=== PATIENT | female | born 1950 | race Caucasian/White ===

== ENCOUNTER 2016-10-05 17:33 | Emergency (ER) | payer MEDICARE, BC ==
[2016-10-05 17:44] VITALS: BP 137/84
--- NOTE | 2016-10-05 18:19 | EDM.PDOC ---
ED HPI GENERAL MEDICAL PROBLEM - General Chief Complaint: Neuro Symptoms/Deficits Stated Complaint: HEADACHE,SLURRED SPEECH,TIRED Time Seen by Provider: 10/05/16 18:18 Source of Information: Reports: Patient, Old Records, RN Notes Reviewed History Limitations: Reports: No Limitations - History of Present Illness INITIAL COMMENTS - FREE TEXT/NARRATIVE: Brought in by tube her daughters Chief complaint Altered behavior History of present illness 66-year-old female who lives on her own since her , brought in by her daughters tonight because of concerns of altered behavior. She was helping her daughter move and tripped when her tennis shoe caught on a today falling on her right side. She hit her right ear her head on the right side the right ribs in the right knee. This happened 11 days ago. Follows unwitnessed but one of the daughters found her to help her get up. She is able to walk around. Because of the ongoing pain she went in to see the physician at [facility] 6 days ago. She was told she had bruised ribs and she was sent here for a CT scan of her head which was negative. She was prescribed some hydrocodone/acetaminophen for her chest pain, she has taken only 3 tablets, 2 yesterday and one earlier in the week. Ongoing symptoms include fatigue, headaches, burning in the corners of her eyes right ear feels like it's draining discomfort in the right side of the chest which now goes to the front of the chest pain with deep breath and intermittently feeling off balance. One daughter was concerned that the day she seemed to have slurred speech and her fatigue seems to have increased since yesterday according to the other daughter. No facial droop is noted A friend of the patient's called one of the daughters because she was quite concerned about her slurred speech and her falling asleep so easily when she was visiting. Appetite has been decreased she's been eating less, blood sugars have been running a little higher than usual and she has been continuing to check them regularly. Today her blood sugar was 143 this morning 202 at midday and 129 after eating later. Her chest pain has been improving her right knee doesn't bother her anymore, but she can use to feel tired and feeling a bit off balance. Occasional nausea but no vomiting. Additionally reports increased burping with the following her for over a month. Headache Pain Score (Numeric/FACES): 6 - Related Data Allergies Allergy/AdvReac Type Severity Reaction Status Date / Time No Known Allergies Allergy Verified 10/05/16 17:55 Home Meds: Home Meds Albuterol [Proventil Neb Soln] 3 ml INH Q4H PRN 07/02/13 [History] Albuterol [Ventolin HFA] 2 puff INH Q4H PRN 07/02/13 [History] Amitriptyline [Elavil] 50 mg PO BEDTIME 07/02/13 [History] Aspirin [Adult Low Dose Aspirin EC] 81 mg PO DAILY 07/02/13 [History] Hydrochlorothiazide 25 mg PO DAILY 07/02/13 [History] LORazepam [Ativan] 1 mg PO BEDTIME 07/02/13 [History] Pramipexole Di-HCl [Mirapex] 0.5 mg PO BEDTIME 07/02/13 [History] Venlafaxine [Venlafaxine ER] 150 mg PO DAILY 07/02/13 [History] metFORMIN [metFORMIN XR] 1,000 mg PO BID 07/02/13 [History] Ammonium Lactate [Lac-Hydrin 12% Crm] 1 appful TOP BID 03/07/15 [History] Docusate Sodium 1 cap PO DAILY 03/07/15 [History] Liraglutide [Victoza] 1.8 mg SQ DAILY 03/07/15 [History] Polyethylene Glycol 3350 [MiraLAX] 34 g PO TID 03/07/15 [History] Wheat Dextrin [Benefiber] 1 pack PO DAILY 03/07/15 [History] Past Medical History Respiratory History: Reports: Pneumonia, Recurrent Gastrointestinal History: Reports: Chronic Constipation - Past Surgical History Musculoskeletal Surgical History: Reports: Arthroscopic Knee Social & Family History - Tobacco Use Smoking Status *Q: Never Smoker Years of Tobacco use: 15 Second Hand Smoke Exposure: No - Alcohol Use Days Per Week of Alcohol Use: 0 - Recreational Drug Use Recreational Drug Use: No ED ROS GENERAL - Review of Systems Review Of Systems: See Below Constitutional: Reports: Fatigue, Decreased Appetite. Denies: Fever, Chills HEENT: Reports: Other (Irritation in the inner corners of each eye, altered sensation in the right ear). Denies: Dental Pain, Ear Discharge, Ear Pain, Hearing Loss, Rhinitis, Vision Change Respiratory: Reports: Other (Chest pain right side). Denies: Shortness of Breath, Cough Cardiovascular: Reports: Chest Pain. Denies: Dyspnea on Exertion, Lightheadedness, Palpitations, Syncope Endocrine: Reports: Fatigue GI/Abdominal: Reports: Nausea. Denies: Abdominal Pain, Diarrhea, Vomiting : Reports: No Symptoms Musculoskeletal: Reports: No Symptoms Skin: Reports: No Symptoms Neurological: Reports: Gait Disturbance (Balance problems). Denies: Confusion, Dizziness, Seizure, Syncope, Tingling, Tremors, Trouble Speaking, Weakness Psychiatric: Reports: No Symptoms Hematologic/Lymphatic: Reports: No Symptoms Immunologic: Reports: No Symptoms ED EXAM, NEURO - Physical Exam Exam: See Below Exam Limited By: No Limitations General Appearance: Alert, No Apparent Distress, Other (Vital signs normal except elevated pulse 103) Eye Exam: Bilateral Eye: EOMI, Normal Inspection Ears: Normal External Exam, Normal Canal, Hearing Grossly Normal, Normal TMs Nose: Normal Inspection, Normal Mucosa Throat/Mouth: Normal Inspection, Normal Teeth, Normal Oropharynx, Normal Voice Head Exam: Atraumatic, Normocephalic Neck: Normal Inspection, Supple, Non-Tender Respiratory/Chest: No Respiratory Distress, Lungs Clear, Normal Breath Sounds, Other (Point tenderness at the chest on the right side one rib laterally and near the breastbone is another location,) Cardiovascular: Normal Peripheral Pulses, Regular Rate, Rhythm, Tachycardia ( Mild initially) GI/Abdominal: Normal Bowel Sounds, Soft, Non-Tender Neurological: Alert, Normal Reflexes, No Motor/Sensory Deficits, Other (Romberg shows significant wobbling but she catches herself doesn't fall, tandem gait is a little difficult, normal gaze a bit slow, [id number] testing show some slowness and into her considerable time to understand how to rapidly alternate her hand movements) Back Exam: Normal Inspection Extremities: Normal Inspection, Non-Tender, No Pedal Edema Psychiatric: Normal Affect Skin Exam: Warm, Dry, Intact, Normal Color, No Rash Course - Vital Signs Last Recorded V/S: Last Vital Signs Temp 36.4 C 10/05/16 18:03 Pulse 103 H 10/05/16 18:03 Resp 16 10/05/16 18:03 BP 137/84 10/05/16 18:03 Pulse Ox 98 10/05/16 18:03 - Orders/Labs/Meds Orders: Active Orders 24 hr Category Date Time Status Head wo Cont [CT] Stat Exams 10/05/16 18:50 Taken Labs: Laboratory Tests 10/05/16 10/05/16 Range/Units 18:50 18:50 WBC 8.6 (4.5-11.0) K/uL RBC 4.45 (3.30-5.50) M/uL Hgb 13.2 D (12.0-15.0) g/dL Hct 40.5 (36.0-48.0) % MCV 91 (80-98) fL MCH 30 (27-31) pg MCHC 33 (32-36) % Plt Count 187 (150-400) K/uL Sodium 138 L (140-148) mmol/L Potassium 4.4 (3.6-5.2) mmol/L Chloride 103 (100-108) mmol/L Carbon Dioxide 28 (21-32) mmol/L Anion Gap 11.4 (5.0-14.0) mmol/L BUN 19 H (7-18) mg/dL Creatinine 1.3 H D (0.6-1.0) mg/dL Est Cr Clr Drug Dosing 32.12 mL/min Estimated GFR (MDRD) 41 L (>60) Glucose 119 H (74-106) mg/dL Calcium 9.4 (8.5-10.1) mg/dL - Re-Assessments/Exams Free Text/Narrative Re-Assessment/Exam: 10/06/16 01:05 66-year-old female with fatigue, slowness of movement some impression of slurred speech and increasing symptoms in the last 2 days. However she fell and had head injury 13 days ago. She does have definite point wall tenderness on the right side so her examination is suspicious for rib fracture, her pain is improving. Differential diagnoses includes metabolic problems medication are concussion, new bleeding or swelling in the head. Because of the significance of these symptoms CBC BMP and CT head ordered 10/06/16 01:06 CT head negative 10/06/16 01:07 Glucose 119, electrolytes normal, mild elevation of creatinine at 1.3 and depression of GFR at 41, normal CBC 10/06/16 01:07 Symptoms most consistent with postconcussive syndrome, close follow-up with her primary care is recommended. Findings on exam are consistent with a single rib fracture See discharge instructions 10/06/16 01:08 Departure - Departure Time of Disposition: 19:45 Disposition: Home, Self-Care 01 Condition: Good Clinical Impression: Postconcussive syndrome Fracture of rib on right side with routine healing Qualifiers: Rib fracture type: single rib Fracture type: closed Qualified Code(s): S22.31XD - Fracture of one rib, right side, subsequent encounter for fracture with routine healing - Discharge Information Instructions: Post-Concussion Syndrome, [id number], Rib Fracture, Easy-to- Read Referrals: Linnea Andrade PA [Primary Care Provider] - Forms: ED Department Discharge Additional Instructions: Please make an appointment with your doctor within 7 days This is to recheck your head injury and also talk about your stomach problems and burping. Return to emergency if you have severe headache that she cannot manage, vomiting , fever, repeated falls, or other worsening change in behavior - My Orders Last 24 Hours: My Active Orders 10/05/16 18:50 Head wo Cont [CT] Stat - Assessment/Plan Last 24 Hours: My Active Orders 10/05/16 18:50 Head wo Cont [CT] Stat
== END 2016-10-05 20:03 | disposition home or self-care (01) ==
LOC: JP.ED 17:33
DX: F07.81 Postconcussional syndrome (principal); S22.31XD Fracture of one rib, right side, subsequent encounter for fracture with routine healing; Z79.82 Long term (current) use of aspirin; Z79.84 Long term (current) use of oral hypoglycemic drugs; Z79.899 Other long term (current) drug therapy; W19.XXXD Unspecified fall, subsequent encounter
CPT/HCPCS: 36415; 70450; 80048; 85027; 99284; 99284-25

== ENCOUNTER 2017-04-18 17:53 | Emergency (ER) | payer MEDICARE, BC ==
[2017-04-18 19:27] VITALS: BP 143/86
--- NOTE | 2017-04-18 20:49 | EDM.PDOC ---
ED HPI GENERAL MEDICAL PROBLEM - General Chief Complaint: Respiratory Problem Stated Complaint: SOB,SICK SINCE Time Seen by Provider: 04/18/17 19:33 Source of Information: Reports: Patient, Family (With her daughter and then with a second daughter as well who arrived later), Old Records, RN Notes Reviewed History Limitations: Reports: No Limitations - History of Present Illness INITIAL COMMENTS - FREE TEXT/NARRATIVE: Brought in by her daughter Chief complaint Difficulty breathing/short of breath History of present illness 66-year-old female who hasn't felt back to normal since . She and other family members started developing fever cough vomiting right after [place], at least one family member was diagnosed with influenza. It was felt that she probably had as well, did not seek medical treatment. However she wasn't fully improved so she was seen at clinic in mid February, symptoms at that time included cough aches and fever. It was thought that she probably had influenza but the examining provider felt there was also some crepitations in the lungs and she was prescribed azithromycin for possible pneumonia. No x-rays were done at that time. Fever did improve but she continued to have cough and was seen at the [facility] clinic a little over 2 weeks ago because of persisting cough and congestion. Chest x-ray was done she was diagnosed with pneumonia and she was prescribed amoxicillin clavulanic acid as well as albuterol ipratropium inhaler. She was told she had pneumonia of the left side of the lungs. Symptoms at that time included cough shortness of breath and greenish sputum. She finished her antibiotics 4 days ago feeling a little better but she continues to feel some shortness of breath when she is up and around and some left-sided chest pain is worse with movement breathing turning. No longer had any fever. She has occasional sharp pain on the left side of the chest ache with up to the armpit. She's also had some bad taste in her mouth on occasion No coryza No fever, occasional sweating spells. Cough is milder but persistent and she feels a bit short of breath. Mild headache No ear or throat pain Occasional hoarseness in her voice. She feels more short of breath on stairs and at times at night she'll wake up feeling short of breath as well. Has not had any swelling in her extremities. Last couple of days she's had decreased appetite although she been drinking small amounts. She didn't have visit at the clinic 4 days ago for follow-up of pulmonary nodules found on a previous CT scan. She hasn't gotten the results of this currently. Normally blood pressure is well controlled, she She's on treatment for diabetes, hypertension, anxiety and depression. 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 She has been diagnosed with asthma but only occasionally use the inhaler in the past. Left Chest Pain Score (Numeric/FACES): 6 - Related Data Allergies Allergy/AdvReac Type Severity Reaction Status Date / Time No Known Allergies Allergy Verified 04/18/17 18:26 Home Meds: Home Meds Albuterol [Proventil Neb Soln] 3 ml INH Q4H PRN 07/02/13 [History] Albuterol [Ventolin HFA] 2 puff INH Q4H PRN 07/02/13 [History] Amitriptyline [Elavil] 50 mg PO BEDTIME 07/02/13 [History] Aspirin [Adult Low Dose Aspirin EC] 81 mg PO DAILY 07/02/13 [History] Hydrochlorothiazide 25 mg PO DAILY 07/02/13 [History] LORazepam [Ativan] 1 mg PO BEDTIME 07/02/13 [History] Pramipexole Di-HCl [Mirapex] 0.5 mg PO BEDTIME 07/02/13 [History] Venlafaxine [Venlafaxine ER] 150 mg PO DAILY 07/02/13 [History] metFORMIN [metFORMIN XR] 1,000 mg PO BID 07/02/13 [History] Ammonium Lactate [Lac-Hydrin 12% Crm] 1 appful TOP BID 03/07/15 [History] Docusate Sodium 1 cap PO DAILY 03/07/15 [History] Liraglutide [Victoza] 1.8 mg SQ DAILY 03/07/15 [History] Polyethylene Glycol 3350 [MiraLAX] 34 g PO TID 03/07/15 [History] Wheat Dextrin [Benefiber] 1 pack PO DAILY 03/07/15 [History] Past Medical History Respiratory History: Reports: Pneumonia, Recurrent Gastrointestinal History: Reports: Chronic Constipation - Past Surgical History Musculoskeletal Surgical History: Reports: Arthroscopic Knee Social & Family History - Tobacco Use Smoking Status *Q: Unknown Ever Smoked Years of Tobacco use: 15 Second Hand Smoke Exposure: No - Alcohol Use Days Per Week of Alcohol Use: 0 - Recreational Drug Use Recreational Drug Use: No ED ROS GENERAL - Review of Systems Review Of Systems: Unable To Obtain Constitutional: Reports: Fatigue, Diaphoresis (Occasional). Denies: Fever, Chills HEENT: Reports: Other (Occasional hoarseness). Denies: Ear Pain, Eye Discharge , Rhinitis, Throat Pain, Vision Change Respiratory: Reports: Shortness of Breath, Cough, Sputum (Mild improved). Denies: Pleuritic Chest Pain Cardiovascular: Reports: Chest Pain (That side of chest but aggravated by movement and breathing), Dyspnea on Exertion (On the stairs). Denies: Edema, Palpitations, Syncope Endocrine: Reports: Fatigue GI/Abdominal: Reports: Constipation (Chronic), Decreased Appetite. Denies: Diarrhea, Nausea, Vomiting : Denies: Dysuria Musculoskeletal: Reports: No Symptoms Skin: Reports: No Symptoms Neurological: Reports: No Symptoms Psychiatric: Reports: No Symptoms Hematologic/Lymphatic: Reports: No Symptoms ED EXAM, GENERAL - Physical Exam Exam: See Below Exam Limited By: No Limitations General Appearance: Alert, Mild Distress, Other (She looks nontoxic, no difficulty speaking or breathing, saturation is normal at rest, blood pressure is elevated bit but other vital signs normal) Eye Exam: Bilateral Eye: EOMI, Normal Inspection Ears: Normal External Exam, Normal Canal, Hearing Grossly Normal, Normal TMs Nose: Normal Inspection, Normal Mucosa Throat/Mouth: Normal Inspection, Normal Oropharynx Head: Atraumatic Neck: Normal Inspection, Supple. No: Lymphadenopathy (R), Lymphadenopathy (L) Respiratory/Chest: No Respiratory Distress, Lungs Clear, Normal Breath Sounds, No Accessory Muscle Use, Other (Chest wall tenderness on the left side). No: Chest Non-Tender Cardiovascular: Normal Peripheral Pulses, Regular Rate, Rhythm GI/Abdominal: Soft, Non-Tender Extremities: Normal Inspection, No Pedal Edema Neurological: Alert, No Motor/Sensory Deficits Skin Exam: Warm, Dry, Intact, Normal Color, No Rash Lymphatic: No Adenopathy Course - Vital Signs Last Recorded V/S: Last Vital Signs Temp 36.7 C 04/18/17 18:22 Pulse 92 04/18/17 20:17 Resp 21 H 04/18/17 19:26 BP 143/86 H 04/18/17 19:26 Pulse Ox 99 02/19/18 20:17 - Re-Assessments/Exams Free Text/Narrative Re-Assessment/Exam: 04/18/17 20:42 66-year-old female with recent diagnosis of influenza about a month ago and pneumonia 2 weeks ago, was on a course of azithromycin followed by amoxicillin/ clavulanic acid Get short of breath at night, sleeps in a recliner intermittently over the last year but no peripheral edema CT scan done for follow-up of pulmonary nodules is negative for acute disease done 3 days ago. Consequently she had pneumonia it has resolved. She does have left-sided chest wall pain ongoing fatigue and some episodes of shortness of breath at night. Saturation normal on room air at rest and with ambulation in emergency Follow-up with primary care She has an appointment with cardiology in April. She continues to feel short of breath further pulmonary studies may be indicated May need stress testing as well Departure - Departure Time of Disposition: 20:44 Disposition: Home, Self-Care 01 Condition: Good Clinical Impression: Post-infection fatigue, Mild intermittent asthma in adult without complication , Left-sided chest wall pain, Nocturnal dyspnea - Discharge Information Instructions: Shortness of Breath, Adult, [id number], Chest Wall Pain Referrals: Linnea Andrade PA [Primary Care Provider] - Forms: ED Department Discharge Additional Instructions: Although there is no evidence of pneumonia or other lung disease currently, you are expecting some shortness of breath at night. Possible causes include asthma, reflux and less likely due to heart disease. Make a follow-up appointment with your provider in the next 1-2 weeks to recheck your lungs. When you see the charge manager talk to them about the difficulty breathing especially occurring at nighttime. Return to emergency if you have a high fever, are very short of breath, turning blue, or develop severe chest pain
== END 2017-04-18 21:08 | disposition home or self-care (01) ==
LOC: JP.ED 17:53
DX: J45.20 Mild intermittent asthma, uncomplicated (principal); R53.83 Other fatigue; E11.9 Type 2 diabetes mellitus without complications; I10 Essential (primary) hypertension; Z79.899 Other long term (current) drug therapy; Z79.82 Long term (current) use of aspirin
CPT/HCPCS: 99283; 99285

== ENCOUNTER 2018-06-19 06:53 | Day surgery (SDC) | payer MEDICARE, BC ==
[2018-06-19] MEDS ORDERED: fentaNYL 100 MCG/2 ML SDV ONE (07:11)
[2018-06-19] MEDS ORDERED: Propofol 200 MG/20 ML SDV ONE (07:11)
[2018-06-19] MEDS ORDERED: Midazolam 1 MG/ML 2 ML SDV ONE (07:12)
[2018-06-19] MEDS ORDERED: Dextrose 5%-Lactated Ringers 1,000 ML IV SCH (07:15)
[2018-06-19] MEDS ORDERED: Pantoprazole 40 MG Vial IVPUSH ONE (08:33)
[2018-06-19 09:43] VITALS: BP 149/85
--- NOTE | 2018-06-27 08:32 | OR ---
DATE OF PROCEDURE: 06/19/2018 SURGEON: Davonte Amaro MD PREOPERATIVE DIAGNOSIS: Epigastric discomfort associated with foul-smelling burping and hiccups. POSTOPERATIVE DIAGNOSES: 1. Probable diabetic gastroparesis. 2. Mild antral gastritis. PROCEDURE PERFORMED: Esophagogastroduodenoscopy with antral biopsies for CLOtest. ANESTHESIA: IV sedation. INDICATION FOR PROCEDURE: This is a 68-year-old presenting with some epigastric discomfort, nausea, and a history of intermittent hiccups. She also has quite a bit in the way of foul- smelling burps and a sense of bloating in the postprandial period. She has longstanding type 2 diabetes mellitus. Plan is to proceed with upper GI endoscopy with biopsies as indicated. Potential risks including bleeding and perforation were discussed, and the patient wishes to proceed. DESCRIPTION OF PROCEDURE: The patient was taken to the operating room and placed in a left lateral decubitus position. IV sedation was administered, after which the upper GI endoscope was passed orally through the length of the esophagus and into the stomach, with retroflexion view of the fundus, and thereafter, through the pyloric channel and into the proximal duodenum. Findings included normal hypopharynx, larynx, upper esophageal sphincter, and esophageal body. The EG junction was likewise unremarkable. As one entered the stomach, there was some retained old food present. This was relatively scant at this point, but certainly would be abnormal, with the patient having been n.p.o. for an excess of 8 hours. There was some mild redness in the antrum associated with this. Otherwise, there was wide open pyloric channel, and the visualized portions of the duodenum were unremarkable. At this point, biopsies were obtained from the antrum and sent for CLOtest for H. pylori. Minimal bleeding from the biopsy site was seen, and the procedure was then concluded. It would appear the patient probably has an element of diabetic gastroparesis, along with the antral gastritis. The plan will be to start the patient on Protonix 40 mg a day and then Reglan 5 mg one-half hour a.c. and at bedtime. The patient is fairly small, so will start with a relatively low dose of the Reglan. She also was instructed to hold the Zantac, after she had been on Protonix for 3 days. Additionally, she should be instructed on anti- bezoar diet and follow closely with Linnea Andrade PA-C, in [facility] in 2 to 3 weeks. If the above regimen is unsuccessful in controlling the patient's symptoms, re-referral to Dr. Amaro in the Surgery Department would be warranted to discuss additional treatment options. Davonte Amaro MD /[id number]
== END 2018-06-19 10:12 | disposition home or self-care (01) ==
LOC: JP.SDS 06:53
PROVIDERS: ATTEND Surgery
DX: K29.70 Gastritis, unspecified, without bleeding (principal); E11.9 Type 2 diabetes mellitus without complications; E78.00 Pure hypercholesterolemia, unspecified; J44.9 Chronic obstructive pulmonary disease, unspecified
CPT/HCPCS: 87081; C9113; J2250; J2704; J3010; J7042

== ENCOUNTER 2019-11-30 08:40 | Day surgery (SDC) | payer MEDICARE, BC ==
[2019-11-30] MEDS ORDERED: Midazolam 1 MG/ML 2 ML SDV ONE (08:57)
[2019-11-30] MEDS ORDERED: fentaNYL 100 MCG/2 ML SDV ONE (08:57)
[2019-11-30] MEDS ORDERED: Propofol 200 MG/20 ML SDV ONE (08:57)
[2019-11-30] MEDS ORDERED: Sodium Chloride 0.9% 1,000 ML IV SCH (09:30)
[2019-11-30] MEDS ORDERED: Dextrose 5%-Lactated Ringers 1,000 ML IV SCH (12:00)
[2019-11-30] MEDS ORDERED: diphenhydrAMINE 50 MG/ML SDV IVPUSH ONE (12:45)
--- NOTE | 2019-11-30 12:47 | OR ---
DATE OF PROCEDURE: 11/30/2019 SURGEON: Martinez Piña MD PROCEDURE: 1. EGD. 2. Colonoscopy. FINDINGS: 1. Transverse colon polyp, approximately 5 mm, completely removed using cold biopsy forceps. 2. Normal EGD. COMPLICATIONS: None. DIRECTOR OF PEOPLE: None. ANESTHESIA: MAC. PREOPERATIVE DIAGNOSIS: Hepatic masses. POSTOPERATIVE DIAGNOSIS: Hepatic masses. RISKS: Risks, benefits, alternatives, and limitations including, but not limited to, infection, bleeding, and perforation were explained to the patient who wished to proceed. PROCEDURE IN DETAIL: The patient was placed in left lateral decubitus position. The EGD scope was introduced and advanced atraumatically to the second part of the duodenum. No evidence of duodenitis or ulceration. In the stomach itself, no gastritis, no ulcers, no masses. The GE junction was also normal. Normal retroflexion. No abnormalities in the esophagus. Digital rectal exam was performed. Scope was introduced and advanced atraumatically to the ileocecal valve. A photo was taken. Scope was brought back through the ascending, transverse, descending colon and retroflexed. Within the transverse colon, there was approximately 5 mm polyp identified and completely removed. No abnormalities on retroflexion. No colitis. No other pathology. Prep was marginal with approximately 95% luminal surface could be seen with suction and irrigation techniques. No abnormalities on retroflexion. Greater than 15 minutes was spent removing the scope. Martinez Piña MD /[id number]
[2019-11-30] MEDS ORDERED: Iopamidol 612 MG/ML 500 ML Multipack Bottle PO ONE (12:59)
[2019-11-30] MEDS ORDERED: Sodium Chloride 0.9% 10 ML Syringe FLUSH ONE (12:59)
[2019-11-30] MEDS ORDERED: Iopamidol 612 MG/ML 500 ML Multipack Bottle IV ONE (12:59)
[2019-11-30] MEDS: Morphine 2 MG/ML SYRINGE IVPUSH PRN ×2 (13:20→15:03)
[2019-11-30 14:20] VITALS: PULSE 88
[2019-11-30 14:21] VITALS: BP 143/71
--- NOTE | 2019-11-30 14:35 | CT ---
Chest Abdomen Pelvis w Cont CLINICAL HISTORY: Liver lesions TECHNIQUE: Transverse scans were obtained from the thoracic inlet to the lung bases with IV contrast. Auto dose reduction and degenerative reconstruction techniques were employed COMPARISONS: None FINDINGS: Lung window images show scattered granulomata. No mass or infiltrate is seen.. Soft tissue window images show no mediastinal mass or suspicious lymphadenopathy. There are no pleural effusions. CT ABDOMEN AND PEVIS WITH IV CONTRAST COMPARISON: None TECHNIQUE: Axial tomographic images are obtained from the dome of the diaphragm to the iliac crest with IV contrast enhancement. Oral contrast was used. FINDINGS: The livercontains numerous low-attenuation lesions throughout the liver. There is a anatomic variant with elongated prominent lower portion of the right lobe. There is some heterogeneity in the dome. The gallbladder is mildly dilated. The spleen has a normal size and shape. The pancreas shows some mild heterogeneity around the head of the pancreas without definite focal mass. There is mild prominence of the pancreatic duct. No inflammatory changes are seen in the surrounding fat. The adrenal glands appear normal bilaterally. The kidneys show no mass, stones or hydronephrosis. The small intestinal gas pattern is nonspecific. Colon is air-filled. It is redundant. There is some soft tissue fullness in the right colon which is likely due to redundancy. Patient has had a recent colonoscopy. IMPRESSION: Numerous low-attenuation lesions scattered throughout the liver. Largest measures 2 cm. This is most likely metastatic disease. There are some heterogeneous and partially enhancing lesions near the dome of the liver. No definite mass is identified. There is some heterogeneity and slight fullness in the head of the pancreas without definite focal mass
== END 2019-11-30 15:27 | disposition home or self-care (01) ==
LOC: JP.SDS 08:40
PROVIDERS: ATTEND Surgery
DX: D12.3 Benign neoplasm of transverse colon (principal); R16.0 Hepatomegaly, not elsewhere classified; J44.9 Chronic obstructive pulmonary disease, unspecified; E11.22 Type 2 diabetes mellitus with diabetic chronic kidney disease; N18.9 Chronic kidney disease, unspecified
CPT/HCPCS: 43235; 45380; 71260; 74177; J1200; J2250; J2270; J2704; J3010; J7030; J7121; 88305

== ENCOUNTER 2019-12-07 14:52 | Emergency (ER) | payer MEDICARE, BC ==
[2019-12-07] MEDS ORDERED: Sodium Chloride 0.9% 10 ML Syringe FLUSH PRN (15:25)
--- NOTE | 2019-12-07 15:31 | EDM.PDOC ---
ED HPI GENERAL MEDICAL PROBLEM - General Chief Complaint: General Stated Complaint: SHAKING , COLD, HAS MASSES IN LIVER Time Seen by Provider: 12/07/19 15:15 Source of Information: Reports: Patient, Family, Old Records, RN History Limitations: Reports: No Limitations - History of Present Illness INITIAL COMMENTS - FREE TEXT/NARRATIVE: 69 yo female here with increasing SOB and weakness. Was recently dx with CA involving the liver. It is unknown if the primary is from her liver or if these are mets to the liver. Is scheduled next Tuesday for a biopsy in [place]. No recent fever. Eating and drinking OK. Some chest pains recently, has no cardiac hx. Was recently checked for leg DVT's. Here with daughter. Pain has been increasing rapidly lately such that Dilaudid 2 mg q 4 h is not controlling her pain. Dr. Piña performed colonoscopy on her finding only a single polyp that was removed in the past few days. Onset: Gradual Duration: Week(s):, Getting Worse Location: Reports: Abdomen (RUQ is where most of her pain is located.) Quality: Reports: Ache Severity: Severe Improves with: Reports: Medication Worsens with: Reports: Other (time/meds wearing off) Context: Reports: Other (See HPI) Associated Symptoms: Reports: Chest Pain (intermittent), Diaphoresis, Malaise, Shortness of Breath, Weakness (generalized). 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: Other (see below) (Dilaudid just before leaving home, 2 mg po) Right Upper Abdomen Pain Score (Numeric/FACES): 8 - Related Data Allergies Allergy/AdvReac Type Severity Reaction Status Date / Time metoclopramide [From Reglan] AdvReac Nausea Verified 12/07/19 15:30 contrast dye Allergy Itching Uncoded 12/07/19 15:30 Home Meds: Home Meds Albuterol [Ventolin HFA] 2 puff INH Q4H PRN 07/02/13 [History] Aspirin [Adult Low Dose Aspirin EC] 81 mg PO DAILY 07/02/13 [History] Pramipexole Di-HCl [Mirapex] 0.5 mg PO BEDTIME 07/02/13 [History] metFORMIN [metFORMIN XR] 1,000 mg PO BID 07/02/13 [History] Docusate Sodium 500 mg PO DAILY PRN 03/07/15 [History] Polyethylene Glycol 3350 [MiraLAX] 34 g PO TID 03/07/15 [History] Calcium Carbonate [Calcium] 600 mg PO BID 05/25/18 [History] Insulin Glargine,Hum.Rec.Anlog [Basaglar Kwikpen U-100] 15 unit SQ BEDTIME 05/25/18 [History] Mirtazapine [Remeron] 30 mg PO BEDTIME 05/25/18 [History] Cholecalciferol (Vitamin D3) [Vitamin D3] 2,000 unit PO DAILY 11/29/19 [History] Lactulose [Generlac] 10 gm PO DAILY PRN 11/29/19 [History] Sennosides [Ex-Lax Maximum Strength] 25 mg PO DAILY PRN 11/29/19 [History] Vitamin B Complex/Folic Acid [Vitamin B-100 Complex] 1 tab PO DAILY 11/29/19 [History] HYDROmorphone [Dilaudid] 2 - 4 mg PO Q4H PRN 12/07/19 [History] LORazepam [Ativan] 0.5 mg PO Q6H PRN 12/07/19 [History] Magnesium Oxide [Magnesium] 1,500 mg PO BEDTIME 12/07/19 [History] Past Medical History HEENT History: Reports: Cataract Cardiovascular History: Reports: High Cholesterol, Hypertension Respiratory History: Reports: Asthma, COPD, Pneumonia, Recurrent Gastrointestinal History: Reports: Chronic Constipation, Gastritis, Hemorrhoids, Other (See Below) Other Gastrointestinal History: nausea and vomiting. 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: Musculoskeletal History: Reports: Arthritis Neurological History: Reports: Neuropathy, Diabetic Psychiatric History: Reports: Anxiety Endocrine/Metabolic History: Reports: Diabetes, Type II Hematologic History: Reports: None - Past Surgical History HEENT Surgical History: Reports: Tonsillectomy Cardiovascular Surgical History: Reports: None Respiratory Surgical History: Reports: None GI Surgical History: Reports: Colonoscopy, EGD Female Surgical History: Reports: None Endocrine Surgical History: Reports: None Neurological Surgical History: Reports: None Musculoskeletal Surgical History: Reports: Arthroscopic Knee Social & Family History - Family History Family Medical History: Noncontributory - Caffeine Use Caffeine Use: Reports: Coffee, Soda, Tea ED ROS GENERAL - Review of Systems Review Of Systems: See Below Constitutional: Reports: Malaise, Weakness, Diaphoresis (at times). Denies: Fever, Decreased Appetite HEENT: Reports: No Symptoms Respiratory: Reports: Shortness of Breath. Denies: Wheezing, Pleuritic Chest Pain, Cough, Sputum, Hemoptysis Cardiovascular: Reports: Chest Pain (intermittent L sided), Dyspnea on Exertion. Denies: Edema, Lightheadedness, Palpitations Endocrine: Reports: No Symptoms GI/Abdominal: Reports: Abdominal Pain (RUQ) : Reports: No Symptoms Musculoskeletal: Reports: No Symptoms Skin: Reports: No Symptoms Neurological: Reports: Weakness (generalized) Psychiatric: Reports: No Symptoms ED EXAM, GENERAL - Physical Exam Exam: See Below Exam Limited By: No Limitations General Appearance: Alert, WD/WN, No Apparent Distress, Lethargic (? from her opiates) Eye Exam: Bilateral Eye: Normal Inspection Ears: Normal External Exam, Normal Canal, Hearing Grossly Normal Ear Exam: Bilateral Ear: Auricle Normal, Canal Normal Nose: Normal Inspection, No Blood Throat/Mouth: Normal Inspection, Normal Lips, Normal Oropharynx, Normal Voice, No Airway Compromise Head: Atraumatic, Normocephalic Neck: Normal Inspection Respiratory/Chest: No Respiratory Distress, No Accessory Muscle Use, Rhonchi (bilaterally), Other (mild tachypnea). No: Respiratory Distress, Crackles, Wheezing, Accessory Muscle Use, Prolonged Expiration Cardiovascular: No Edema, Tachycardia GI/Abdominal: No Distention, Tender (RUQ). No: Non-Tender, Distended, Abnormal Bowel Sounds Back Exam: Normal Inspection Extremities: Normal Inspection, Normal Range of Motion, Non-Tender, No Pedal Edema Neurological: Alert, Oriented, CN II-XII Intact, No Motor/Sensory Deficits, Other (mentally sluggish, ? from her opiates) Psychiatric: Flat Affect. No: Tearful Skin Exam: Warm, Dry, Intact, Normal Color, No Rash Course - Vital Signs Text/Narrative:: Dr. Jeremi john @ 1850h Last Recorded V/S: Last Vital Signs Temp 36.9 C 12/07/19 15:18 Pulse 86 12/07/19 16:30 Resp 21 H 12/07/19 15:18 BP 144/63 H 12/07/19 16:30 Pulse Ox 96 12/07/19 15:18 - Orders/Labs/Meds Orders: Active Orders 24 hr Category Date Time Status Cardiac Monitoring [RC] .As Directed Care 12/07/19 15:04 Active UA W/MICROSCOPIC [URIN] Stat Lab 12/07/19 15:09 Ordered Iopamidol [Isovue-370 (76%)] Med 12/07/19 16:45 Active 70 ml IV . DIRECTED Sodium Chloride 0.9% [Normal Saline] 1,000 ml Med 12/07/19 16:30 Active IV ASDIRECTED Sodium Chloride 0.9% [Normal Saline] 100 ml Med 12/07/19 16:45 Active IV ASDIRECTED Sodium Chloride 0.9% [Saline Flush] Med 12/07/19 15:25 Active 10 ml FLUSH ASDIRECTED PRN Saline Lock Insert [OM.PC] Routine Oth 12/07/19 15:25 Ordered Medication Orders Sodium Chloride (Normal Saline) 1,000 mls @ 500 mls/hr IV ASDIRECTED CARMELA Last Admin: 12/07/19 16:25 Dose: 500 mls/hr Documented by: NEGRA Sodium Chloride (Normal Saline) 100 mls @ 4 mls/sec IV ASDIRECTED CARMELA Last Admin: 12/07/19 17:20 Dose: 4 mls/sec Documented by: BRITTONALY Iopamidol (Isovue-370 (76%)) 70 ml IV . DIRECTED CARMELA Last Admin: 12/07/19 17:20 Dose: 70 ml Documented by: BRITTONALY Sodium Chloride (Saline Flush) 10 ml FLUSH ASDIRECTED PRN PRN Reason: Keep Vein Open Last Admin: 12/07/19 15:31 Dose: 10 ml Documented by: NEGRA Labs: Laboratory Tests 12/07/19 12/07/19 12/07/19 Range/Units 15:32 15:32 15:32 WBC 6.9 (4.5-11.0) K/uL RBC 4.26 (3.30-5.50) M/uL Hgb 11.6 L (12.0-15.0) g/dL Hct 37.8 (36.0-48.0) % MCV 89 (80-98) fL MCH 27 (27-31) pg MCHC 31 L (32-36) % Plt Count 352 (150-400) K/uL D-Dimer, Quantitative 418 H (0.0-400.0) ng/mL Sodium 137 L (140-148) mmol/L Potassium 5.0 (3.6-5.2) mmol/L Chloride 101 (100-108) mmol/L Carbon Dioxide 25 (21-32) mmol/L Anion Gap 16.0 H (5.0-14.0) mmol/L BUN 21 H (7-18) mg/dL Creatinine 1.4 H (0.6-1.0) mg/dL Est Cr Clr Drug Dosing 28.62 mL/min Estimated GFR (MDRD) 37 L (>60) Glucose 102 (74-106) mg/dL Calcium 9.6 (8.5-10.1) mg/dL Total Bilirubin 0.3 (0.2-1.0) mg/dL AST 76 H (15-37) U/L ALT 41 (12-78) U/L Alkaline Phosphatase 188 H (46-116) U/L C-Reactive Protein 0.71 H (0.0-0.3) mg/dL Total Protein 7.5 (6.4-8.2) g/dL Albumin 2.9 L (3.4-5.0) g/dL Globulin 4.6 H (2.3-3.5) g/dL Albumin/Globulin Ratio 0.6 L (1.2-2.2) Meds: Medications Generic Name Dose Route Start Last Admin Trade Name Freq PRN Reason Stop Dose Admin Sodium Chloride 1,000 mls @ 500 mls/hr 12/07/19 16:30 12/07/19 16:25 Normal Saline IV 500 mls/hr ASDIRECTED CARMELA Administration Sodium Chloride 100 mls @ 4 mls/sec 12/07/19 16:45 12/07/19 17:20 Normal Saline IV 4 mls/sec ASDIRECTED CARMELA Administration Iopamidol 70 ml 12/07/19 16:45 12/07/19 17:20 Isovue-370 (76%) IV 70 ml . DIRECTED CARMELA Administration Sodium Chloride 10 ml 12/07/19 15:25 12/07/19 15:31 Saline Flush FLUSH 10 ml ASDIRECTED PRN Administration Keep Vein Open Discontinued Medications Generic Name Dose Route Start Last Admin Trade Name Freq PRN Reason Stop Dose Admin Diphenhydramine HCl 50 mg 12/07/19 16:28 12/07/19 16:39 Benadryl IVPUSH 12/07/19 16:29 50 mg ONETIME ONE Administration Hydromorphone HCl 1 mg 12/07/19 18:12 Dilaudid IVPUSH 12/07/19 18:13 ONETIME ONE Hydromorphone HCl 2 mg 12/07/19 18:18 Dilaudid PO 12/07/19 18:19 NOW STA Ketorolac Tromethamine 15 mg 12/07/19 15:50 12/07/19 16:12 Toradol IVPUSH 12/07/19 15:51 15 mg ONETIME ONE Administration Sodium Chloride 10 ml 12/07/19 16:32 12/07/19 17:20 Saline Flush FLUSH 12/07/19 16:33 10 ml ONETIME ONE Administration - Radiology Interpretation Free Text/Narrative:: CXR-IMPRESSION: No acute cardiopulmonary findings. Dictated by Alejandrina Ingram MD @ Dec 07 2019 3:46PM Angio Chest-no PE CT Results Date: 12/07/19 CT Results Time: 18:47 - Re-Assessments/Exams Free Text/Narrative Re-Assessment/Exam: 12/07/19 18:54 Offered admission, wants to go home. Departure - Departure Time of Disposition: 18:54 Disposition: Home, Self-Care 01 Condition: Fair Clinical Impression: Weakness, Inadequate pain control Liver cancer Qualifiers: Liver malignancy type: unspecified primary liver malignancy Qualified Code(s): C22.8 - Malignant neoplasm of liver, primary, unspecified as to type - Discharge Information *PRESCRIPTION DRUG MONITORING PROGRAM REVIEWED*: No *COPY OF PRESCRIPTION DRUG MONITORING REPORT IN PATIENT [facility]: No Referrals: PCP,None [Primary Care Provider] - Forms: ED Department Discharge Additional Instructions: Continue your current treatments. F/U with your doctor on Tuesday if possible. Return as needed. Sepsis Event Note (ED) - Evaluation Sepsis Screening Result: No Definite Risk - Focused Exam Vital Signs: Vital Signs Temp Pulse Resp BP Pulse Ox 12/07/19 16:30 86 144/63 H 12/07/19 16:00 87 165/66 H 12/07/19 15:18 36.9 C 105 H 21 H 144/76 H 96 12/07/19 15:07 36.9 C 105 H 21 H 144/76 H 96 - My Orders Last 24 Hours: My Active Orders 12/07/19 15:04 Cardiac Monitoring [RC] .As Directed 12/07/19 15:09 UA W/MICROSCOPIC [URIN] Stat 12/07/19 15:25 Sodium Chloride 0.9% [Saline Flush] 10 ml FLUSH ASDIRECTED PRN Saline Lock Insert [OM.PC] Routine 12/07/19 16:30 Sodium Chloride 0.9% [Normal Saline] 1,000 ml IV ASDIRECTED 12/07/19 16:45 Iopamidol [Isovue-370 (76%)] 70 ml IV . DIRECTED Sodium Chloride 0.9% [Normal Saline] 100 ml IV ASDIRECTED - Assessment/Plan Last 24 Hours: My Active Orders 12/07/19 15:04 Cardiac Monitoring [RC] .As Directed 12/07/19 15:09 UA W/MICROSCOPIC [URIN] Stat 12/07/19 15:25 Sodium Chloride 0.9% [Saline Flush] 10 ml FLUSH ASDIRECTED PRN Saline Lock Insert [OM.PC] Routine 12/07/19 16:30 Sodium Chloride 0.9% [Normal Saline] 1,000 ml IV ASDIRECTED 12/07/19 16:45 Iopamidol [Isovue-370 (76%)] 70 ml IV . DIRECTED Sodium Chloride 0.9% [Normal Saline] 100 ml IV ASDIRECTED
[2019-12-07] MEDS ORDERED: Ketorolac 30 MG/ML SDV IVPUSH ONE (15:50)
--- NOTE | 2019-12-07 15:51 | CRLCR ---
INDICATION: Shortness of breath, history of liver cancer, question metastatic. COMPARISON: CT chest, abdomen, pelvis 11/30/2019. No report is available. TECHNIQUE: 2 view chest. FINDINGS: Linear atelectasis in the left lung base. No focal consolidation, pleural effusion, or pneumothorax. Tiny calcified granuloma in the left upper lung laterally. Normal heart size and pulmonary vascularity. IMPRESSION: No acute cardiopulmonary findings. Dictated by Alejandrina Ingram MD @ Dec 07 2019 3:46PM Signed by Dr. Alejandrina Ingram @ Dec 07 2019 3:49PM
[2019-12-07] MEDS ORDERED: diphenhydrAMINE 50 MG/ML SDV IVPUSH ONE (16:28)
[2019-12-07] MEDS ORDERED: Sodium Chloride 0.9% 1,000 ML IV SCH (16:30)
[2019-12-07] MEDS ORDERED: Sodium Chloride 0.9% 10 ML Syringe FLUSH ONE (16:32)
[2019-12-07 16:44] VITALS: BP 144/63; PULSE 86
[2019-12-07] MEDS ORDERED: Sodium Chloride 0.9% 100 ML IV SCH (16:45)
[2019-12-07] MEDS ORDERED: Iopamidol 755 Mg/ML 100 ML Bottle IV SCH (16:45)
[2019-12-07] MEDS ORDERED: HYDROmorphone 1 MG/ML Syringe IVPUSH ONE (18:12)
[2019-12-07] MEDS ORDERED: HYDROmorphone 2 MG Tab PO STA (18:18)
--- NOTE | 2019-12-07 18:50 | CRLCT ---
INDICATION: Elevated D-dimer and dyspnea. COMPARISON: Portions of a study from November 30, 2019 TECHNIQUE: : CT examination of the chest was performed with the uneventful intravenous administration of 70 cc of Isovue 370 while thin axial sections were obtained from above the apices of the lungs to the lung bases. Please note that all CT scans at this facility use dose modulation, iterative reconstruction, and/or weight-based dosing when appropriate to reduce radiation dose to as low as reasonably achievable. FINDINGS: : HEART and MEDIASTINUM: Heart size normal. Prominent mediastinal lymph nodes particularly subcarinal. Atherosclerotic vascular calcifications. No significant pericardial fluid. PULMONARY ARTERIAL CIRCULATION: There is no visible intraluminal filling defect to suggest pulmonary embolus. LUNGS: Evidence of remote granulomatous infection. Biapical pleural parenchymal scarring. Linear opacities of both lung bases probably due to atelectasis. Cystic change probably related to emphysema. There is a somewhat spiculated nodule low in the left upper lobe. This measures about 1 centimeter and is best seen on coronal image 50. This could be neoplastic. Follow-up is advised. PLEURAL SPACES: No pleural effusion or pneumothorax. Unilateral left sided pleural calcification more likely be related to remote insult rather than asbestos disease due to its unilaterality. VISUALIZED UPPER ABDOMEN: Numerous hypervascular/hyperdense hepatic masses in the setting of fatty infiltration probably related to metastatic disease. OSSEOUS STRUCTURES: Age-appropriate appearance. No acute fracture or destructive process.There is no destructive process of bone TUBES and LINES: None. IMPRESSION: 1. There is no finding of pulmonary embolus. 2. There are numerous hepatic masses that likely represent metastatic disease to the liver. 3. Prominent subcarinal mediastinal lymph node. 4. Bibasilar atelectasis. Small irregular nodule measuring about 1 centimeter low within the left upper lobe could be neoplastic. No pleural effusion or pneumothorax. 5. Discussed with Dr. Angelo Baxter at 6:45 p.m. on December 07, [address] scans at this facility use dose modulation, iterative reconstruction, and/or weight-based dosing when appropriate to reduce radiation dose to as low as reasonably achievable. Dictated by Davonte High MD @ Dec 07 2019 6:36PM Signed by Dr. Davonte High @ Dec 07 2019 6:48PM
[2019-12-07] MEDS ORDERED: fentaNYL 12 MCG/HR Transdermal Patch TRDERM ONE (19:03)
== END 2019-12-07 19:54 | disposition home or self-care (01) ==
LOC: JP.ED 14:52
DX: C22.8 Malignant neoplasm of liver, primary, unspecified as to type (principal); E11.40 Type 2 diabetes mellitus with diabetic neuropathy, unspecified; J44.9 Chronic obstructive pulmonary disease, unspecified; I12.9 Hypertensive chronic kidney disease with stage 1 through stage 4 chronic kidney disease, or unspecified chronic kidney disease; E11.22 Type 2 diabetes mellitus with diabetic chronic kidney disease; N18.9 Chronic kidney disease, unspecified; Z91.041 Radiographic dye allergy status; Z88.8 Allergy status to other drugs, medicaments and biological substances; Z79.82 Long term (current) use of aspirin; Z79.4 Long term (current) use of insulin; Z79.899 Other long term (current) drug therapy
CPT/HCPCS: 36415; 71046; 71275; 80053; 81001; 85027; 85379; 86140; 96361; 96374; 96375; 99285; A9270; J1200; J1885; J7030; Q9967; 99283

== ENCOUNTER 2019-12-17 12:21 | Observation (INO) | payer MEDICARE, BC ==
[2019-12-17] MEDS ORDERED: Acetaminophen 325 MG Tab PO PRN ×2 (13:37→18:14)
[2019-12-17] MEDS ORDERED: Ondansetron 4 MG/2 ML SDV IVPUSH ONE (13:40)
[2019-12-17] MEDS ORDERED: HYDROmorphone 1 MG/ML Syringe IVPUSH ONE (13:40)
[2019-12-17] MEDS ORDERED: Lactated Ringers 1,000 ML IV SCH (13:45)
--- NOTE | 2019-12-17 13:55 | EDM.PDOC ---
ED HPI GENERAL MEDICAL PROBLEM - General Chief Complaint: General Stated Complaint: [facility]IA [facility] Time Seen by Provider: 12/17/19 12:56 Source of Information: Reports: Patient, Old Records, RN Notes Reviewed History Limitations: Reports: No Limitations - History of Present Illness INITIAL COMMENTS - FREE TEXT/NARRATIVE: 69-year-old female presents emergency department today complaint of increasing abdominal pain, confusion and fever increasing weakness. Recent diagnosis with hepatocellular carcinoma the entire process of initial evaluation biopsy CT scan showing lesions within the liver has been about 3 weeks. She has had a rapid decline over the last 3 days. Underwent liver biopsy last week diagnosis of hepatocellular carcinoma given to the patient on Tuesday. Over the weekend she has had increased moments of confusion increased generalized abdominal pain increased abdominal distention. Her pain medications have increased significantly from being opiate yenny to 50 mcg of fentanyl patch in combination with 4 mg Dilaudid every 4 hours. She also complains of nausea generalized weakness Right Generalized Pain Score (Numeric/FACES): 5 - Related Data Allergies Allergy/AdvReac Type Severity Reaction Status Date / Time metoclopramide [From Reglan] AdvReac Nausea Verified 12/17/19 12:49 contrast dye Allergy Itching Uncoded 12/07/19 15:30 Home Meds: Home Meds Albuterol [Ventolin HFA] 2 puff INH Q4H PRN 07/02/13 [History] Aspirin [Adult Low Dose Aspirin EC] 81 mg PO DAILY 07/02/13 [History] Pramipexole Di-HCl [Mirapex] 0.5 mg PO BEDTIME 07/02/13 [History] metFORMIN [metFORMIN XR] 1,000 mg PO BID 07/02/13 [History] Docusate Sodium 500 mg PO DAILY PRN 03/07/15 [History] Polyethylene Glycol 3350 [MiraLAX] 34 g PO TID 03/07/15 [History] Calcium Carbonate [Calcium] 600 mg PO BID 05/25/18 [History] Insulin Glargine,Hum.Rec.Anlog [Basaglar Kwikpen U-100] 15 unit SQ BEDTIME 05/25/18 [History] Mirtazapine [Remeron] 30 mg PO BEDTIME 05/25/18 [History] Cholecalciferol (Vitamin D3) [Vitamin D3] 2,000 unit PO DAILY 11/29/19 [History] Lactulose [Generlac] 10 gm PO DAILY PRN 11/29/19 [History] Sennosides [Ex-Lax Maximum Strength] 25 mg PO DAILY PRN 11/29/19 [History] Vitamin B Complex/Folic Acid [Vitamin B-100 Complex] 1 tab PO DAILY 11/29/19 [History] HYDROmorphone [Dilaudid] 2 - 4 mg PO Q4H PRN 12/07/19 [History] LORazepam [Ativan] 0.5 mg PO Q6H PRN 12/07/19 [History] Magnesium Oxide [Magnesium] 1,500 mg PO BEDTIME 12/07/19 [History] fentaNYL [Duragesic] 1 patch TOP ASDIRECTED 12/17/19 [History] Past Medical History HEENT History: Reports: Cataract Cardiovascular History: Reports: High Cholesterol, Hypertension Respiratory History: Reports: Asthma, COPD, Pneumonia, Recurrent Gastrointestinal History: Reports: Chronic Constipation, Gastritis, Hemorrhoids, Other (See Below) Other Gastrointestinal History: nausea and vomiting. 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: Musculoskeletal History: Reports: Arthritis Neurological History: Reports: Neuropathy, Diabetic Psychiatric History: Reports: Anxiety Endocrine/Metabolic History: Reports: Diabetes, Type II Oncologic (Cancer) History: Reports: Liver (Hepatocellular carcinoma) - Infectious Disease History Infectious Disease History: Reports: Chicken Pox - Past Surgical History HEENT Surgical History: Reports: Tonsillectomy GI Surgical History: Reports: Colonoscopy, EGD Musculoskeletal Surgical History: Reports: Arthroscopic Knee Social & Family History - Family History Family Medical History: Noncontributory - Tobacco Use Tobacco Use Status *Q: Never Tobacco User - Caffeine Use Caffeine Use: Reports: Coffee - Recreational Drug Use Recreational Drug Use: No ED ROS GENERAL - Review of Systems Review Of Systems: See Below Constitutional: Reports: Fever, Chills, Weakness HEENT: Reports: No Symptoms Respiratory: Reports: No Symptoms Cardiovascular: Reports: No Symptoms GI/Abdominal: Reports: Abdominal Pain, Nausea. Denies: Vomiting : Reports: No Symptoms Musculoskeletal: Reports: No Symptoms Skin: Reports: No Symptoms Neurological: Reports: Confusion ED EXAM, GENERAL - Physical Exam Exam: See Below Exam Limited By: No Limitations General Appearance: Alert, Other (Ill-appearing) Respiratory/Chest: No Respiratory Distress, Lungs Clear, Normal Breath Sounds, No Accessory Muscle Use, Chest Non-Tender Cardiovascular: Regular Rate, Rhythm, No Murmur GI/Abdominal: Soft, Distended, Tender (Generalized tenderness), Abnormal Bowel Sounds (Decreased) Course - Vital Signs Last Recorded V/S: Last Vital Signs Temp 101.9 F H 12/17/19 14:37 Pulse 97 12/17/19 15:59 Resp 16 12/17/19 14:38 BP 129/65 12/17/19 15:59 Pulse Ox 100 12/17/19 15:59 - Orders/Labs/Meds Orders: Active Orders 24 hr Category Date Time Status Peripheral IV Care [RC] . DIRECTED Care 12/17/19 13:38 Active Vital Signs [RC] Q1H Care 12/17/19 13:38 Active CULTURE BLOOD [BC] Urgent Lab 12/17/19 14:05 Received CULTURE BLOOD [BC] Urgent Lab 12/17/19 14:12 Received HEPATITIS PANEL (4) Urgent Lab 12/17/19 14:05 Received UA W/MICROSCOPIC [URIN] Urgent Lab 12/17/19 13:37 Ordered Acetaminophen [TylenoL] Med 12/17/19 13:37 Active 650 mg PO Q4H PRN Lactated Ringers [Ringers, Lactated] 1,000 ml Med 12/17/19 13:45 Active IV ASDIRECTED Piperacillin/Tazobactam [Zosyn] 4.5 gm Med 12/17/19 13:45 Active Sodium Chloride 0.9% [Normal Saline] 100 ml IV Q6H Sodium Chloride 0.9% [Saline Flush] Med 12/17/19 13:37 Active 10 ml FLUSH ASDIRECTED PRN Blood Culture x2 Reflex Set [OM.PC] Urgent Oth 12/17/19 13:38 Ordered Isolation [COMM] Routine Oth 12/17/19 13:39 Ordered Isolation [COMM] Stat Oth 12/17/19 13:38 Ordered Peripheral IV Insertion Adult [OM.PC] Routine Oth 12/17/19 13:37 Ordered Medication Orders Acetaminophen (Tylenol) 650 mg PO Q4H PRN PRN Reason: Fever Greater Than 101 Last Admin: 12/17/19 14:37 Dose: 650 mg Documented by: SHANNAN Lactated Ringer's (Ringers, Lactated) 1,000 mls @ 999 mls/hr IV ASDIRECTED [facility] Last Admin: 12/17/19 14:23 Dose: 999 mls/hr Documented by: SHANNAN Piperacillin Sod/Tazobactam (Sod 4.5 gm/ Sodium Chloride) 100 mls @ 100 mls/hr IV Q6H [facility] Last Admin: 12/17/19 14:37 Dose: 100 mls/hr Documented by: SHANNAN Sodium Chloride (Saline Flush) 10 ml FLUSH ASDIRECTED PRN PRN Reason: Keep Vein Open Last Admin: 12/17/19 15:26 Dose: 10 ml Documented by: WOODY Labs: Laboratory Tests 12/17/19 12/17/19 12/17/19 Range/Units 13:49 14:05 14:05 WBC 8.4 (4.5-11.0) K/uL RBC 4.09 (3.30-5.50) M/uL Hgb 11.2 L (12.0-15.0) g/dL Hct 36.3 (36.0-48.0) % MCV 89 (80-98) fL MCH 27 (27-31) pg MCHC 31 L (32-36) % Plt Count 247 (150-400) K/uL Neut % (Auto) 78 H (36-66) % Lymph % (Auto) 12 L (24-44) % Moore % (Auto) 9 H (2-6) % Eos % (Auto) 0 L (2-4) % Baso % (Auto) 0 (0-1) % PT (9.5-12.0) sec INR (0.80-1.20) APTT 28.3 (27.0-36.0) sec Sodium (140-148) mmol/L Potassium (3.6-5.2) mmol/L Chloride (100-108) mmol/L Carbon Dioxide (21-32) mmol/L Anion Gap (5.0-14.0) mmol/L BUN (7-18) mg/dL Creatinine (0.6-1.0) mg/dL Est Cr Clr Drug Dosing mL/min Estimated GFR (MDRD) (>60) Glucose (74-106) mg/dL Lactic Acid (0.4-2.0) mmol/L Calcium (8.5-10.1) mg/dL Total Bilirubin (0.2-1.0) mg/dL Direct Bilirubin (0.0-0.2) mg/dL Indirect Bilirubin AST (15-37) U/L ALT (12-78) U/L Alkaline Phosphatase (46-116) U/L Lactate Dehydrogenase (82-234) U/L C-Reactive Protein (0.0-0.3) mg/dL Total Protein (6.4-8.2) g/dL Albumin (3.4-5.0) g/dL Globulin (2.3-3.5) g/dL Albumin/Globulin Ratio (1.2-2.2) Procalcitonin ng/mL SARS-CoV-2 RNA (TAYLOR) Negative (NEGATIVE) 12/17/19 12/17/19 12/17/19 Range/Units 14:05 14:05 14:05 WBC (4.5-11.0) K/uL RBC (3.30-5.50) M/uL Hgb (12.0-15.0) g/dL Hct (36.0-48.0) % MCV (80-98) fL MCH (27-31) pg MCHC (32-36) % Plt Count (150-400) K/uL Neut % (Auto) (36-66) % Lymph % (Auto) (24-44) % Moore % (Auto) (2-6) % Eos % (Auto) (2-4) % Baso % (Auto) (0-1) % PT (9.5-12.0) sec INR (0.80-1.20) APTT (27.0-36.0) sec Sodium 133 L (140-148) mmol/L Potassium 5.0 (3.6-5.2) mmol/L Chloride 98 L (100-108) mmol/L Carbon Dioxide 30 (21-32) mmol/L Anion Gap 10.0 (5.0-14.0) mmol/L BUN 26 H (7-18) mg/dL Creatinine 1.4 H (0.6-1.0) mg/dL Est Cr Clr Drug Dosing 31.37 mL/min Estimated GFR (MDRD) 37 L (>60) Glucose 117 H (74-106) mg/dL Lactic Acid 1.0 (0.4-2.0) mmol/L Calcium 9.4 (8.5-10.1) mg/dL Total Bilirubin 0.4 (0.2-1.0) mg/dL Direct Bilirubin 0.22 H (0.0-0.2) mg/dL Indirect Bilirubin 0.18 AST 169 H D (15-37) U/L ALT 34 (12-78) U/L Alkaline Phosphatase 138 H (46-116) U/L Lactate Dehydrogenase 235 H (82-234) U/L C-Reactive Protein 4.45 H (0.0-0.3) mg/dL Total Protein 7.6 (6.4-8.2) g/dL Albumin 2.9 L (3.4-5.0) g/dL Globulin 4.7 H (2.3-3.5) g/dL Albumin/Globulin Ratio 0.6 L (1.2-2.2) Procalcitonin 0.67 ng/mL SARS-CoV-2 RNA (TAYLOR) (NEGATIVE) 12/17/19 Range/Units 14:05 WBC (4.5-11.0) K/uL RBC (3.30-5.50) M/uL Hgb (12.0-15.0) g/dL Hct (36.0-48.0) % MCV (80-98) fL MCH (27-31) pg MCHC (32-36) % Plt Count (150-400) K/uL Neut % (Auto) (36-66) % Lymph % (Auto) (24-44) % Moore % (Auto) (2-6) % Eos % (Auto) (2-4) % Baso % (Auto) (0-1) % PT 11.7 (9.5-12.0) sec INR 1.07 (0.80-1.20) APTT (27.0-36.0) sec Sodium (140-148) mmol/L Potassium (3.6-5.2) mmol/L Chloride (100-108) mmol/L Carbon Dioxide (21-32) mmol/L Anion Gap (5.0-14.0) mmol/L BUN (7-18) mg/dL Creatinine (0.6-1.0) mg/dL Est Cr Clr Drug Dosing mL/min Estimated GFR (MDRD) (>60) Glucose (74-106) mg/dL Lactic Acid (0.4-2.0) mmol/L Calcium (8.5-10.1) mg/dL Total Bilirubin (0.2-1.0) mg/dL Direct Bilirubin (0.0-0.2) mg/dL Indirect Bilirubin AST (15-37) U/L ALT (12-78) U/L Alkaline Phosphatase (46-116) U/L Lactate Dehydrogenase (82-234) U/L C-Reactive Protein (0.0-0.3) mg/dL Total Protein (6.4-8.2) g/dL Albumin (3.4-5.0) g/dL Globulin (2.3-3.5) g/dL Albumin/Globulin Ratio (1.2-2.2) Procalcitonin ng/mL SARS-CoV-2 RNA (TAYLOR) (NEGATIVE) Meds: Medications Generic Name Dose Route Start Last Admin Trade Name Freq PRN Reason Stop Dose Admin Acetaminophen 650 mg 12/17/19 13:37 12/17/19 14:37 Tylenol PO 650 mg Q4H PRN Administration Fever Greater Than 101 Lactated Ringer's 1,000 mls @ 999 mls/hr 12/17/19 13:45 12/17/19 14:23 Ringers, Lactated IV 999 mls/hr ASDIRECTED CARMELA Administration Piperacillin Sod/Tazobactam 100 mls @ 100 mls/hr 12/17/19 13:45 12/17/19 14:37 Sod 4.5 gm/ Sodium Chloride IV 100 mls/hr Q6H CARMELA Administration Sodium Chloride 10 ml 12/17/19 13:37 12/17/19 15:26 Saline Flush FLUSH 10 ml ASDIRECTED PRN Administration Keep Vein Open Discontinued Medications Generic Name Dose Route Start Last Admin Trade Name Freq PRN Reason Stop Dose Admin Diphenhydramine HCl 25 mg 12/17/19 14:20 Benadryl IVPUSH 12/17/19 14:21 ONETIME ONE Diphenhydramine HCl 50 mg 12/17/19 14:28 12/17/19 14:38 Benadryl IVPUSH 12/17/19 14:29 Not Given ONETIME ONE Hydromorphone HCl 1 mg 12/17/19 13:40 12/17/19 14:24 Dilaudid IVPUSH 12/17/19 13:41 1 mg ONETIME ONE Administration Sodium Chloride 80 mls @ 3 mls/sec 12/17/19 15:00 12/17/19 15:26 Normal Saline IV 12/17/19 15:01 3 mls/sec ASDIRECTED CARMELA Administration Iopamidol 100 ml 12/17/19 14:59 12/17/19 15:26 Isovue-300 (61%) IV 12/17/19 15:00 100 ml ONETIME ONE Administration Ondansetron HCl 4 mg 12/17/19 13:40 12/17/19 14:23 Zofran IVPUSH 12/17/19 13:41 4 mg ONETIME ONE Administration Sodium Chloride 10 ml 12/17/19 14:59 Saline Flush FLUSH 12/17/19 15:00 ONETIME ONE Departure - Departure Time of Disposition: 17:01 Disposition: Admitted As Inpatient 66 Condition: Poor Clinical Impression: Inadequate pain control, Hepatocellular carcinoma - Discharge Information Referrals: PCP,None [Primary Care Provider] - Forms: ED Department Discharge Sepsis Event Note (ED) - Evaluation Sepsis Screening Result: Possible Sepsis Risk - Focused Exam Vital Signs: Vital Signs Temp Temp Pulse Resp BP Pulse Ox 12/17/19 15:59 97 129/65 100 12/17/19 15:30 106 H 152/76 H 98 12/17/19 14:57 97 110/54 L 98 12/17/19 14:38 102 H 16 133/55 L 96 12/17/19 14:37 101.9 F H 12/17/19 13:38 104 H 16 138/63 94 L 12/17/19 13:03 101.9 F H 102 H 18 113/67 94 L - My Orders Last 24 Hours: My Active Orders 12/17/19 13:37 UA W/MICROSCOPIC [URIN] Urgent Acetaminophen [TylenoL] 650 mg PO Q4H PRN Sodium Chloride 0.9% [Saline Flush] 10 ml FLUSH ASDIRECTED PRN Peripheral IV Insertion Adult [OM.PC] Routine 12/17/19 13:38 Peripheral IV Care [RC] . DIRECTED Vital Signs [RC] Q1H Blood Culture x2 Reflex Set [OM.PC] Urgent Isolation [COMM] Stat 12/17/19 13:39 Isolation [COMM] Routine 12/17/19 13:45 Lactated Ringers [Ringers, Lactated] 1,000 ml IV ASDIRECTED Piperacillin/Tazobactam [Zosyn] 4.5 gm Sodium Chloride 0.9% [Normal Saline] 100 ml IV Q6H 12/17/19 14:05 CULTURE BLOOD [BC] Urgent HEPATITIS PANEL (4) Urgent 12/17/19 14:12 CULTURE BLOOD [BC] Urgent - Assessment/Plan Last 24 Hours: My Active Orders 12/17/19 13:37 UA W/MICROSCOPIC [URIN] Urgent Acetaminophen [TylenoL] 650 mg PO Q4H PRN Sodium Chloride 0.9% [Saline Flush] 10 ml FLUSH ASDIRECTED PRN Peripheral IV Insertion Adult [OM.PC] Routine 12/17/19 13:38 Peripheral IV Care [RC] . DIRECTED Vital Signs [RC] Q1H Blood Culture x2 Reflex Set [OM.PC] Urgent Isolation [COMM] Stat 12/17/19 13:39 Isolation [COMM] Routine 12/17/19 13:45 Lactated Ringers [Ringers, Lactated] 1,000 ml IV ASDIRECTED Piperacillin/Tazobactam [Zosyn] 4.5 gm Sodium Chloride 0.9% [Normal Saline] 100 ml IV Q6H 12/17/19 14:05 CULTURE BLOOD [BC] Urgent HEPATITIS PANEL (4) Urgent 12/17/19 14:12 CULTURE BLOOD [BC] Urgent Plan: Assessment Acuity = acute Site and laterality = pain control complicated patient with known history of hepatocellular carcinoma and fever Etiology = probably related to progression of disease Manifestations = decreasing function Location of injury = Home Lab values = CBC unremarkable creatinine elevated 1.4 consistent chronic renal failure stage G3 B lactic acid normal 1.0 LDH slightly elevated 235 albumin low 2.9 consistent hypoalbuminemia Covid was negative influenza negative chest x-ray shows poor inspiratory effort bases could be considered atelectasis or inf iltrate unclear etiology, CT scan of the chest reveals a large liver mass with multiple lesions within the liver however no other acute process is appreciated does have a large amount of fecal retention Plan Call discussed case with hospitalist on-call at [phone] he kindly agreed to come and evaluate the patient in the emergency department for admission of pain control help with constipation she does have an oncology appointment on Tuesday of this week This note was dictated using [employer] voice recognition software please call with any questions on syntax or grammar.
[2019-12-17] MEDS ORDERED: diphenhydrAMINE 50 MG/ML SDV IVPUSH ONE (14:20)
[2019-12-17] MEDS: diphenhydrAMINE 50 MG/ML SDV IVPUSH ONE ×2 (14:29→14:38)
[2019-12-17] MEDS: Piperacillin/Tazobactam 4.5 GM in Sodium Chloride 0.9% 100 ML IV SCH ×2 (14:37→19:51)
[2019-12-17] MEDS ORDERED: Sodium Chloride 0.9% 10 ML Syringe FLUSH ONE (14:59)
[2019-12-17] MEDS ORDERED: Iopamidol 612 MG/ML 500 ML Multipack Bottle IV ONE (14:59)
[2019-12-17] MEDS ORDERED: Sodium Chloride 0.9% 80 ML IV SCH (15:00)
[2019-12-17] MEDS: Sodium Chloride 0.9% 10 ML Syringe FLUSH PRN (15:26)
--- NOTE | 2019-12-17 16:06 | CR ---
CHEST: Portable 12/17/2019 at 3:38 PM CLINICAL HISTORY:Fever COMPARISON:12/07/2019 FINDINGS: There is some patchy airspace disease at both lung bases. This may represent some patchy atelectasis. There is less than optimal inspiration. Heart size and pulmonary vascularity are normal. Impression: Limited portable study with poor inspiration Patchy bibasal airspace disease may represent some patchy atelectasis. Infiltrate, particularly at the left lung base cannot be excluded
--- NOTE | 2019-12-17 16:35 | CRLCT ---
INDICATION: Hepatocellular carcinoma with abdominal pain COMPARISON: I have reviewed portions of November 30, 2019 study. TECHNIQUE: CT examination of the abdomen and pelvis was performed following the uneventful intravenous administration of 100 cc of Isovue-300. Thin section axial images were obtained from the lung bases through the pubic symphysis. Oral contrast was not administered. Please note that all CT scans at this facility use dose modulation, iterative reconstruction, and/or weight-based dosing when appropriate to reduce radiation dose to as low as reasonably achievable. FINDINGS: LUNG BASES: Opacities at the lung base are likely related atelectasis. This is slightly progressive at the right lung base when compared to November 30, 2019.No significant pleural fluid. Heart mildly enlarged. The lung bases. Small hiatal hernia. LIVER/BILIARY SYSTEM:Too numerous to count hepatic masses consistent with multifocal hepatoma. There is a dominant rounded mass which is partially exophytic from the inferior aspect of the right lobe of the liver measuring about 9 centimeters. This is unchanged. There is surrounding inflammatory change in this area. The gallbladder is distended but otherwise unremarkable. Fluid near the gallbladder is probably related to the underlying liver disease rather than the gallbladder ADRENALS: Normal KIDNEYS, URETERS and BLADDER:The kidneys appear normal. No visible mass, calculus or hydronephrosis. The ureters and bladder as visualized appear normal. SPLEEN:Normal appearance. PANCREAS: Appears normal. RETROPERITONEUM and MESENTERY: Scattered prominent lymph nodes especially vik hepatis and upper abdominal retroperitoneum unchanged. GASTROINTESTINAL SYSTEM: There is no evidence of diverticulitis, colitis, mechanical obstruction, or appendicitis. The small bowel as visualized appears normal.Moderate diffuse fecal retention. No acute GI findings. PELVIS: No mass, adenopathy or free fluid. OSSEOUS STRUCTURES and ABDOMINAL WALL: There is an age-appropriate appearance of the osseous structures.No significant abdominal wall defect. OTHER: No free fluid or free air. IMPRESSION: 1. There are too numerous to count hepatic masses consistent with multifocal hepatoma. There is 1 dominant mass which is partially exophytic inferiorly from the right lobe measuring about 9 centimeters. The general appearance of the liver is unchanged. There is surrounding inflammatory change likely related to the underlying malignant disease. This appearance is similar to the prior study. Prominent upper abdominal lymph nodes are unchanged. Bibasilar atelectasis, right greater than left has somewhat worsened 2. Diffuse fecal retention without mechanical obstruction. Please note that all CT scans at this facility use dose modulation, iterative reconstruction, and/or weight-based dosing when appropriate to reduce radiation dose to as low as reasonably achievable. Dictated by Davonte High MD @ Dec 17 2019 4:21PM Signed by Dr. Davonte High @ Dec 17 2019 4:34PM
[2019-12-17] MEDS ORDERED: methylPREDNISolone Sodium Succinate 125 MG/2 ML SDV IVPUSH ONE (17:43)
[2019-12-17] MEDS ORDERED: Sodium Chloride 0.9% 1,000 ML IV SCH (17:45)
--- NOTE | 2019-12-17 17:57 | PCM.HP.2 ---
H&P History of Present Illness - General Date of Service: 12/17/19 Admit Problem/Dx: Admission Diagnosis/Problem Admission Diagnosis/Problem Right upper quadrant abdominal pain Source of Information: Patient, Family History Limitations: Reports: Altered Mental Status - History of Present Illness Initial Comments - Free Text/Narative: CC: RUQ pain HPI: Lissa presented to the emergency room with right upper quadrant abdominal pain, low-grade fever and confusion. The patient has very sleepy at this time and history is difficult to obtain. Most of her history was gathered from her daughter who is at the bedside and has been with her for the past 3 weeks. They report onset of pain about 3 weeks ago and this has prompted a CT scan of the abdomen and pelvis as well as EGD and colonoscopy. The CT raised concern for hepatocellular carcinoma and this was confirmed with needle biopsy. She describes achy right upper quadrant abdominal pain. This pain can be severe wi th movements but is typically just a moderate pain. The pain has been slowly getting worse. The pain is now radiating to the right lower abdomen as well as the right upper abdomen and right shoulder. She has been taking oral hydromorphone and is using a fentanyl patch but the pain has been steadily getting worse. She has nausea but no vomiting. Her bowel movements have been about like usual with chronic constipation. She has had some low-grade fevers but they have all been 100 degrees or less. She feels a little short of breath. She feels quite sleepy. Her daughter reports that her mental status waxes and wanes. Mental status seems to be going downhill since pain medications have b een increased over the past week to 10 days. She is not aware of any sick contacts. She has not traveled other than to doctors appointments. She has not been eating or drinking well the past few days. Work-up in the emergency room was fairly unremarkable other than dehydration and a mild reduction in her kidney function from baseline. A CT scan was repeated with the worsening of her abdominal pain and this showed stable but impressive changes with the hepatocellular carcinoma. The patient is very somnolent but also continues to report significant pain. She is going to be admitted for ad justments in her pain medications. Right Generalized Pain Score (Numeric/FACES): 5 - Related Data Allergies/Adverse Reactions: Allergies Allergy/AdvReac Type Severity Reaction Status Date / Time metoclopramide [From Reglan] AdvReac Nausea Verified 12/17/19 12:49 contrast dye Allergy Itching Uncoded 12/07/19 15:30 Home Medications: Home Meds Albuterol [Ventolin HFA] 2 puff INH Q4H PRN 07/02/13 [History] Aspirin [Adult Low Dose Aspirin EC] 81 mg PO DAILY 07/02/13 [History] Pramipexole Di-HCl [Mirapex] 0.5 mg PO BEDTIME 07/02/13 [History] metFORMIN [metFORMIN XR] 1,000 mg PO BID 07/02/13 [History] Docusate Sodium 500 mg PO DAILY PRN 03/07/15 [History] Polyethylene Glycol 3350 [MiraLAX] 34 g PO TID 03/07/15 [History] Calcium Carbonate [Calcium] 600 mg PO BID 05/25/18 [History] Insulin Glargine,Hum.Rec.Anlog [Basaglar Kwikpen U-100] 15 unit SQ BEDTIME 05/25/18 [History] Mirtazapine [Remeron] 30 mg PO BEDTIME 05/25/18 [History] Cholecalciferol (Vitamin D3) [Vitamin D3] 2,000 unit PO DAILY 11/29/19 [History] Lactulose [Generlac] 10 gm PO DAILY PRN 11/29/19 [History] Sennosides [Ex-Lax Maximum Strength] 25 mg PO DAILY PRN 11/29/19 [History] Vitamin B Complex/Folic Acid [Vitamin B-100 Complex] 1 tab PO DAILY 11/29/19 [History] HYDROmorphone [Dilaudid] 2 - 4 mg PO Q4H PRN 12/07/19 [History] LORazepam [Ativan] 0.5 mg PO Q6H PRN 12/07/19 [History] Magnesium Oxide [Magnesium] 1,500 mg PO BEDTIME 12/07/19 [History] fentaNYL [Duragesic] 1 patch TOP ASDIRECTED 12/17/19 [History] Past Medical History HEENT History: Reports: Cataract Cardiovascular History: Reports: High Cholesterol, Hypertension Respiratory History: Reports: Asthma, COPD, Pneumonia, Recurrent Gastrointestinal History: Reports: Chronic Constipation, Gastritis, Hemorrhoids, Other (See Below) Other Gastrointestinal History: nausea and vomiting. 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: Musculoskeletal History: Reports: Arthritis Neurological History: Reports: Neuropathy, Diabetic Psychiatric History: Reports: Anxiety Endocrine/Metabolic History: Reports: Diabetes, Type II Oncologic (Cancer) History: Reports: Liver (Hepatocellular carcinoma) - Infectious Disease History Infectious Disease History: Reports: Chicken Pox - Past Surgical History HEENT Surgical History: Reports: Tonsillectomy GI Surgical History: Reports: Colonoscopy, EGD Musculoskeletal Surgical History: Reports: Arthroscopic Knee Social & Family History - Family History Family Medical History: Noncontributory - Tobacco Use Tobacco Use Status *Q: Never Tobacco User - Caffeine Use Caffeine Use: Reports: Coffee - Alcohol Use Alcohol Use History: No - Recreational Drug Use Recreational Drug Use: No H&P Review of Systems - Review of Systems: Review Of Systems: See Below Free Text/Narrative: A complete 12 point review of systems was obtained. Pertinent positives and negatives are noted in the history of present illness. All other systems were reviewed and were negative except as noted. Some of these were reviewed with the patient in some with her daughter. Exam - Exam Exam: See Below - Vital Signs Vital Signs: Last Vital Signs Temp 38.4 C H 12/17/19 17:52 Pulse 93 12/17/19 17:52 Resp 18 12/17/19 17:52 BP 123/59 L 12/17/19 17:52 Pulse Ox 97 12/17/19 17:52 Weight: 65 kg - Exam Quality Assessment: Supplemental Oxygen General: Alert, Cooperative, Lethargic. No: Mild Distress HEENT: Conjunctiva Clear, Pupils Equal. No: Mucosa Moist & [place] (Dry) Neck: Supple, Trachea Midline. No: Lymphadenopathy Lungs: Clear to Auscultation, Normal Respiratory Effort, Decreased Breath Sounds (Mild at both bases) Cardiovascular: Regular Rhythm, Tachycardia. No: Systolic Murmur GI/Abdominal Exam: Normal Bowel Sounds, Soft, No Distention, Tender (Mild generalized pain and moderate right upper quadrant pain), Hepatomegaly Extremities: Pedal Edema (Trace bilateral ankle edema). No: Increased Warmth Peripheral Pulses: 2+: Dorsalis Pedis (L), Dorsalis Pedis (R) Skin: Warm, Dry Neuro Extensive - Mental Status: Alert, Slow Response to Commands. No: Oriented x3 Neuro Extensive - Motor, Sensory, Reflexes: No: Dysarthria, Abnormal Motor, Tremor Psychiatric: Alert. No: Agitated - Patient Data Lab Results Last 24 hrs: Laboratory Results - last 24 hr 12/17/19 12/17/19 12/17/19 Range/Units 13:49 14:05 14:05 WBC 8.4 (4.5-11.0) K/uL RBC 4.09 (3.30-5.50) M/uL Hgb 11.2 L (12.0-15.0) g/dL Hct 36.3 (36.0-48.0) % MCV 89 (80-98) fL MCH 27 (27-31) pg MCHC 31 L (32-36) % Plt Count 247 (150-400) K/uL Neut % (Auto) 78 H (36-66) % Lymph % (Auto) 12 L (24-44) % [place] % (Auto) 9 H (2-6) % Eos % (Auto) 0 L (2-4) % Baso % (Auto) 0 (0-1) % PT (9.5-12.0) sec INR (0.80-1.20) APTT 28.3 (27.0-36.0) sec Sodium (140-148) mmol/L Potassium (3.6-5.2) mmol/L Chloride (100-108) mmol/L Carbon Dioxide (21-32) mmol/L Anion Gap (5.0-14.0) mmol/L BUN (7-18) mg/dL Creatinine (0.6-1.0) mg/dL Est Cr Clr Drug Dosing mL/min Estimated GFR (MDRD) (>60) Glucose (74-106) mg/dL Lactic Acid (0.4-2.0) mmol/L Calcium (8.5-10.1) mg/dL Total Bilirubin (0.2-1.0) mg/dL Direct Bilirubin (0.0-0.2) mg/dL Indirect Bilirubin AST (15-37) U/L ALT (12-78) U/L Alkaline Phosphatase (46-116) U/L Lactate Dehydrogenase (82-234) U/L C-Reactive Protein (0.0-0.3) mg/dL Total Protein (6.4-8.2) g/dL Albumin (3.4-5.0) g/dL Globulin (2.3-3.5) g/dL Albumin/Globulin Ratio (1.2-2.2) Procalcitonin ng/mL SARS-CoV-2 RNA (TAYLOR) Negative (NEGATIVE) 12/17/19 12/17/19 12/17/19 Range/Units 14:05 14:05 14:05 WBC (4.5-11.0) K/uL RBC (3.30-5.50) M/uL Hgb (12.0-15.0) g/dL Hct (36.0-48.0) % MCV (80-98) fL MCH (27-31) pg MCHC (32-36) % Plt Count (150-400) K/uL Neut % (Auto) (36-66) % Lymph % (Auto) (24-44) % [place] % (Auto) (2-6) % Eos % (Auto) (2-4) % Baso % (Auto) (0-1) % PT (9.5-12.0) sec INR (0.80-1.20) APTT (27.0-36.0) sec Sodium 133 L (140-148) mmol/L Potassium 5.0 (3.6-5.2) mmol/L Chloride 98 L (100-108) mmol/L Carbon Dioxide 30 (21-32) mmol/L Anion Gap 10.0 (5.0-14.0) mmol/L BUN 26 H (7-18) mg/dL Creatinine 1.4 H (0.6-1.0) mg/dL Est Cr Clr Drug Dosing 31.37 mL/min Estimated GFR (MDRD) 37 L (>60) Glucose 117 H (74-106) mg/dL Lactic Acid 1.0 (0.4-2.0) mmol/L Calcium 9.4 (8.5-10.1) mg/dL Total Bilirubin 0.4 (0.2-1.0) mg/dL Direct Bilirubin 0.22 H (0.0-0.2) mg/dL Indirect Bilirubin 0.18 AST 169 H D (15-37) U/L ALT 34 (12-78) U/L Alkaline Phosphatase 138 H (46-116) U/L Lactate Dehydrogenase 235 H (82-234) U/L C-Reactive Protein 4.45 H (0.0-0.3) mg/dL Total Protein 7.6 (6.4-8.2) g/dL Albumin 2.9 L (3.4-5.0) g/dL Globulin 4.7 H (2.3-3.5) g/dL Albumin/Globulin Ratio 0.6 L (1.2-2.2) Procalcitonin 0.67 ng/mL SARS-CoV-2 RNA (TAYLOR) (NEGATIVE) 12/17/19 Range/Units 14:05 WBC (4.5-11.0) K/uL RBC (3.30-5.50) M/uL Hgb (12.0-15.0) g/dL Hct (36.0-48.0) % MCV (80-98) fL MCH (27-31) pg MCHC (32-36) % Plt Count (150-400) K/uL Neut % (Auto) (36-66) % Lymph % (Auto) (24-44) % [place] % (Auto) (2-6) % Eos % (Auto) (2-4) % Baso % (Auto) (0-1) % PT 11.7 (9.5-12.0) sec INR 1.07 (0.80-1.20) APTT (27.0-36.0) sec Sodium (140-148) mmol/L Potassium (3.6-5.2) mmol/L Chloride (100-108) mmol/L Carbon Dioxide (21-32) mmol/L Anion Gap (5.0-14.0) mmol/L BUN (7-18) mg/dL Creatinine (0.6-1.0) mg/dL Est Cr Clr Drug Dosing mL/min Estimated GFR (MDRD) (>60) Glucose (74-106) mg/dL Lactic Acid (0.4-2.0) mmol/L Calcium (8.5-10.1) mg/dL Total Bilirubin (0.2-1.0) mg/dL Direct Bilirubin (0.0-0.2) mg/dL Indirect Bilirubin AST (15-37) U/L ALT (12-78) U/L Alkaline Phosphatase (46-116) U/L Lactate Dehydrogenase (82-234) U/L C-Reactive Protein (0.0-0.3) mg/dL Total Protein (6.4-8.2) g/dL Albumin (3.4-5.0) g/dL Globulin (2.3-3.5) g/dL Albumin/Globulin Ratio (1.2-2.2) Procalcitonin ng/mL SARS-CoV-2 RNA ([facility]OR) (NEGATIVE) Result Diagrams: 12/17/19 14:05 12/17/19 14:05 Favio Results Last 24 hrs: Microbiology 12/17/19 13:49 Influenza Type A Antigen Screen - Final Nasal Aspirate, Unspecified NEGATIVE INFLUENZA A VIRUS AG REFERENCE RANGE: NEGATIVE Influenza Type B Antigen Screen - Final NEGATIVE INFLUENZA B VIRUS AG REFERENCE RANGE: NEGATIVE Imaging Impressions Last 24 hrs: I did personally review all of the images discussed below Chest x-ray-lungs essentially clear other than may be some mild bilateral atelectasis. No obvious mass, infiltrate or effusion. Heart size is normal. CT scan of the abdomen and pelvis-multiple lesions noted throughout the liver with a larger mass in the right right lobe and especially in the lower portion. This is fairly stable from the CT scan of couple weeks ago. Sepsis Event Note - Evaluation Sepsis Screening Result: Possible Sepsis Risk - Focused Exam Vital Signs: Vital Signs Temp Temp Pulse Resp BP Pulse Ox 12/17/19 17:52 38.4 C H 93 18 123/59 L 97 12/17/19 15:59 97 129/65 100 12/17/19 15:30 106 H 152/76 H 98 12/17/19 14:57 97 110/54 L 98 12/17/19 14:38 102 H 16 133/55 L 96 12/17/19 14:37 38.8 C H 12/17/19 13:38 104 H 16 138/63 94 L 12/17/19 13:03 38.8 C H 102 H 18 113/67 94 L *Q Meaningful Use (ADM) - VTE Risk Assess *Q Each Risk Factor Represents 1 Point: Obesity ( BMI > 25 kg/m2) Total Score 1 Point Risk Factors: 1 Each Risk Factor Represents 2 Points: Age 60 - 74 Years, Malignancy (present or previous) Total Score 2 Point Risk Factors: 4 Each Risk Factor Represents 3 Points: None Total Score 3 Point Risk Factors: 0 Each Risk Factor Represents 5 Points: None Total Score 5 Point Risk Factors: 0 Venous Thromboembolism Risk Factor Score *Q: 5 - Problem List (1) Right upper quadrant abdominal pain SNOMED Code(s): 825508523 ICD Code: R10.11 - RIGHT UPPER QUADRANT PAIN Status: Acute Current Visit: Yes (2) Hepatocellular carcinoma Status: Acute Current Visit: Yes (3) CKD (chronic kidney disease), stage III SNOMED Code(s): 508997990 ICD Code: N18.30 - CHRONIC KIDNEY DISEASE, STAGE 3 UNSPECIFIED Status: Chronic Current Visit: No Qualifiers: Chronic kidney disease stage 3 subtype: stage 3a (GFR 45-59) Qualified Code(s): N18.31 - Chronic kidney disease, stage 3a (4) Type 2 diabetes mellitus SNOMED Code(s): 05483632 ICD Code: E11.9 - TYPE 2 DIABETES MELLITUS WITHOUT COMPLICATIONS Status: Chronic Current Visit: No Qualifiers: 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 DIRECTED Care 12/17/19 13:38 Active Vital Signs [RC] Q1H Care 12/17/19 13:38 Active CULTURE BLOOD [BC] Urgent Lab 12/17/19 14:05 Received CULTURE BLOOD [BC] Urgent Lab 12/17/19 14:12 Received HEPATITIS PANEL (4) Urgent Lab 12/17/19 14:05 Received UA W/MICROSCOPIC [URIN] Urgent Lab 12/17/19 13:37 Ordered Acetaminophen [TylenoL] Med 12/17/19 13:37 Active 650 mg PO Q4H PRN Lactated Ringers [Ringers, Lactated] 1,000 ml Med 12/17/19 13:45 Active IV ASDIRECTED Piperacillin/Tazobactam [Zosyn] 4.5 gm Med 12/17/19 13:45 Active Sodium Chloride 0.9% [Normal Saline] 100 ml IV Q6H Sodium Chloride 0.9% [Normal Saline] 1,000 ml Med 12/17/19 17:45 Active IV ASDIRECTED Sodium Chloride 0.9% [Saline Flush] Med 12/17/19 13:37 Active 10 ml FLUSH ASDIRECTED PRN Blood Culture x2 Reflex Set [OM.PC] Urgent Oth 12/17/19 13:38 Ordered Isolation [COMM] Routine Oth 12/17/19 13:39 Ordered Isolation [COMM] Stat Oth 12/17/19 13:38 Ordered Peripheral IV Insertion Adult [OM.PC] Routine Oth 12/17/19 13:37 Ordered Resuscitation Status Routine Resus Stat 12/17/19 17:49 Ordered Medication Orders Acetaminophen (Tylenol) 650 mg PO Q4H PRN PRN Reason: Fever Greater Than 101 Last Admin: 12/17/19 14:37 Dose: 650 mg Documented by: SHANNAN Lactated Ringer's (Ringers, Lactated) 1,000 mls @ 999 mls/hr IV ASDIRECTED CARMELA Last Admin: 12/17/19 14:23 Dose: 999 mls/hr Documented by: SHANNAN Piperacillin Sod/Tazobactam (Sod 4.5 gm/ Sodium Chloride) 100 mls @ 100 mls/hr IV Q6H CARMELA Last Admin: 12/17/19 14:37 Dose: 100 mls/hr Documented by: SHANNAN Sodium Chloride (Normal Saline) 1,000 mls @ 500 mls/hr IV ASDIRECTED CARMELA Stop: 12/17/19 19:46 Last Admin: 12/17/19 17:49 Dose: 500 mls/hr Documented by: SOHEILADELottie Sodium Chloride (Saline Flush) 10 ml FLUSH ASDIRECTED PRN PRN Reason: Keep Vein Open Last Admin: 12/17/19 15:26 Dose: 10 ml Documented by: WOODY Assessment/Plan Comment:: ASSESSMENT AND PLAN - Hepatocellular carcinoma-diffuse lesions throughout the abdomen. She has not yet had an oncology consultation. Just received biopsy results 3 days ago. Main manifestation at this time is significant pain that is not getting better despite increases in her pain regimen. I believe that the pain medications are now contributing to her somnolence and confusion. The plan is for admission for pain control. The patient does have an oncology appointment scheduled in 2 days and hopefully we can have her in good enough shape to attend that. No other evidence for infection to suggest alternate cause for the fever that I suspect is coming from her cancer. -Discontinue fentanyl patch -Pain control with morphine and Toradol -Consider adding long-acting morphine if this is effective -Solu-Medrol x1 today and start prednisone tomorrow for anti-inflammatory effect -Outpatient oncology follow-up -Ammonia level in the morning Insulin-dependent diabetes mellitus-poor intake recently. Blood sugar is normal at this time. I would anticipate her blood sugars will rise with the initiation of steroids. -Hold long-acting insulin for tonight -Medium dose sliding scale insulin -Hold metformin Stage III chronic kidney disease-creatinine slightly worse than baseline but hopefully will improve with some hydration overnight. Maintenance issues - - DVT prophylaxis -mechanical - GI prophylaxis -not indicated - Nutrition -consistent carbohydrates - Roach catheter -not indicated CODE STATUS -full code per discussion with her daughter Admission justification -patient will be referred observation status for pain control and hydration. Disposition - I would anticipate discharge home in 1 to 2 days Primary care physician -Dr. Leatha Paz M.D. - Mortality Measure Prognosis:: Poor
[2019-12-17] MEDS ORDERED: Magnesium Hydroxide 400 MG/5 ML Susp 30 ML Cup PO PRN (18:14)
[2019-12-17] MEDS ORDERED: LORazepam 2 MG/ML SDV IVPUSH PRN (18:14)
[2019-12-17] MEDS ORDERED: LORazepam 0.5 MG Tab PO PRN (18:14)
[2019-12-17] MEDS ORDERED: Morphine 15 MG Tab PO PRN (18:14)
[2019-12-17] MEDS ORDERED: Ondansetron 4 MG Tab.DIS PO PRN (18:14)
[2019-12-17] MEDS ORDERED: Ketorolac 30 MG/ML SDV IVPUSH PRN (18:14)
[2019-12-17] MEDS ORDERED: Ondansetron 4 MG/2 ML SDV IV PRN (18:14)
[2019-12-17] MEDS: Sodium Chloride 0.9% 1,000 ML IV SCH (18:32)
[2019-12-17] MEDS: Morphine 2 MG/ML SYRINGE IVPUSH PRN ×2 (18:48→21:24)
[2019-12-17] MEDS ORDERED: Pramipexole 0.5 MG Tab PO SCH (21:00)
[2019-12-17] MEDS ORDERED: Mirtazapine 15 MG Tab PO SCH (21:00)
[2019-12-17] MEDS: Insulin Lispro 100 Unit/ML 3 ML KwikPen SUBCUT SCH (21:25)
[2019-12-18] MEDS: Morphine 2 MG/ML SYRINGE IVPUSH PRN ×4 (01:23→14:31)
[2019-12-18] MEDS: Sodium Chloride 0.9% 1,000 ML IV SCH (01:44)
[2019-12-18] MEDS: Piperacillin/Tazobactam 4.5 GM in Sodium Chloride 0.9% 100 ML IV SCH (01:46)
[2019-12-18] MEDS ORDERED: Piperacillin/Tazobactam/Dext 4.5 GM in Premix Bag 1 BAG IV SCH (08:00)
[2019-12-18] MEDS: predniSONE 20 MG Tab PO SCH (08:07)
[2019-12-18] MEDS: Insulin Lispro 100 Unit/ML 3 ML KwikPen SUBCUT SCH ×4 (08:07→21:35)
[2019-12-18] MEDS ORDERED: Aspirin 81 MG Tab.EC PO SCH (09:00)
--- NOTE | 2019-12-18 10:59 | PCM.PN ---
- General Info Date of Service: 12/18/19 Subjective Update: No acute events overnight. Patient rested fairly well. She is complaining of right sided and right upper quadrant abdominal pain that is 6-7 out of 10. Pain is stable compared to yesterday and may be a little better. She is more clear today and is not falling asleep continuously. She has mild nausea after taking her pills but did not have nausea or vomiting overnight. No fevers overnight. Urinalysis was not suggestive of infection. Functional Status: Reports: Pain Controlled, Tolerating Diet - Patient Data Vitals - Most Recent: Last Vital Signs Temp 36.4 C 12/18/19 10:44 Pulse 77 12/18/19 10:44 Resp 16 12/18/19 10:44 BP 149/71 H 12/18/19 10:44 Pulse Ox 95 12/18/19 10:44 Weight - Most Recent: 63.049 kg I&O - Last 24 Hours: Intake & Output 12/17/19 12/18/19 12/18/19 22:59 06:59 14:59 Intake Total 480 100 Output Total 1000 Balance -520 100 Lab Results Last 24 Hours: Laboratory Results - last 24 hr 12/17/19 12/17/19 12/17/19 Range/Units 13:49 14:05 14:05 WBC 8.4 (4.5-11.0) K/uL RBC 4.09 (3.30-5.50) M/uL Hgb 11.2 L (12.0-15.0) g/dL Hct 36.3 (36.0-48.0) % MCV 89 (80-98) fL MCH 27 (27-31) pg MCHC 31 L (32-36) % Plt Count 247 (150-400) K/uL Neut % (Auto) 78 H (36-66) % Lymph % (Auto) 12 L (24-44) % Mcduffie % (Auto) 9 H (2-6) % Eos % (Auto) 0 L (2-4) % Baso % (Auto) 0 (0-1) % PT (9.5-12.0) sec INR (0.80-1.20) APTT 28.3 (27.0-36.0) sec Sodium (140-148) mmol/L Potassium (3.6-5.2) mmol/L Chloride (100-108) mmol/L Carbon Dioxide (21-32) mmol/L Anion Gap (5.0-14.0) mmol/L BUN (7-18) mg/dL Creatinine (0.6-1.0) mg/dL Est Cr Clr Drug Dosing mL/min Estimated GFR (MDRD) (>60) Glucose (74-106) mg/dL POC Glucose (74-106) MG/DL Lactic Acid (0.4-2.0) mmol/L Calcium (8.5-10.1) mg/dL Total Bilirubin (0.2-1.0) mg/dL Direct Bilirubin (0.0-0.2) mg/dL Indirect Bilirubin AST (15-37) U/L ALT (12-78) U/L Alkaline Phosphatase (46-116) U/L Ammonia (11-32) mmol/L Lactate Dehydrogenase (82-234) U/L C-Reactive Protein (0.0-0.3) mg/dL Total Protein (6.4-8.2) g/dL Albumin (3.4-5.0) g/dL Globulin (2.3-3.5) g/dL Albumin/Globulin Ratio (1.2-2.2) Procalcitonin ng/mL Urine Color (YELLOW) Urine Appearance (CLEAR) Urine pH (5.0-8.0) Ur Specific [place] (1.008-1.030) Urine Protein (NEGATIVE) mg/dL Urine Glucose (UA) (NEGATIVE) mg/dL Urine Ketones (NEGATIVE) mg/dL Urine Occult Blood (NEGATIVE) Urine Nitrite (NEGATIVE) Urine Bilirubin (NEGATIVE) Urine Urobilinogen (0.2-1.0) EU/dL Ur Leukocyte Esterase (NEGATIVE) Urine RBC (0-5) Urine WBC (0-5) Ur Epithelial Cells Amorphous Sediment Urine Bacteria Urine Mucus SARS-CoV-2 RNA (TAYLOR) Negative (NEGATIVE) 12/17/19 12/17/19 12/17/19 Range/Units 14:05 14:05 14:05 WBC (4.5-11.0) K/uL RBC (3.30-5.50) M/uL Hgb (12.0-15.0) g/dL Hct (36.0-48.0) % MCV (80-98) fL MCH (27-31) pg MCHC (32-36) % Plt Count (150-400) K/uL Neut % (Auto) (36-66) % Lymph % (Auto) (24-44) % Mcduffie % (Auto) (2-6) % Eos % (Auto) (2-4) % Baso % (Auto) (0-1) % PT (9.5-12.0) sec INR (0.80-1.20) APTT (27.0-36.0) sec Sodium 133 L (140-148) mmol/L Potassium 5.0 (3.6-5.2) mmol/L Chloride 98 L (100-108) mmol/L Carbon Dioxide 30 (21-32) mmol/L Anion Gap 10.0 (5.0-14.0) mmol/L BUN 26 H (7-18) mg/dL Creatinine 1.4 H (0.6-1.0) mg/dL Est Cr Clr Drug Dosing 31.37 mL/min Estimated GFR (MDRD) 37 L (>60) Glucose 117 H (74-106) mg/dL POC Glucose (74-106) MG/DL Lactic Acid 1.0 (0.4-2.0) mmol/L Calcium 9.4 (8.5-10.1) mg/dL Total Bilirubin 0.4 (0.2-1.0) mg/dL Direct Bilirubin 0.22 H (0.0-0.2) mg/dL Indirect Bilirubin 0.18 AST 169 H D (15-37) U/L ALT 34 (12-78) U/L Alkaline Phosphatase 138 H (46-116) U/L Ammonia (11-32) mmol/L Lactate Dehydrogenase 235 H (82-234) U/L C-Reactive Protein 4.45 H (0.0-0.3) mg/dL Total Protein 7.6 (6.4-8.2) g/dL Albumin 2.9 L (3.4-5.0) g/dL Globulin 4.7 H (2.3-3.5) g/dL Albumin/Globulin Ratio 0.6 L (1.2-2.2) Procalcitonin 0.67 ng/mL Urine Color (YELLOW) Urine Appearance (CLEAR) Urine pH (5.0-8.0) Ur Specific [place] (1.008-1.030) Urine Protein (NEGATIVE) mg/dL Urine Glucose (UA) (NEGATIVE) mg/dL Urine Ketones (NEGATIVE) mg/dL Urine Occult Blood (NEGATIVE) Urine Nitrite (NEGATIVE) Urine Bilirubin (NEGATIVE) Urine Urobilinogen (0.2-1.0) EU/dL Ur Leukocyte Esterase (NEGATIVE) Urine RBC (0-5) Urine WBC (0-5) Ur Epithelial Cells Amorphous Sediment Urine Bacteria Urine Mucus SARS-CoV-2 RNA (TAYLOR) (NEGATIVE) 12/17/19 12/17/19 12/17/19 Range/Units 14:05 18:14 21:00 WBC (4.5-11.0) K/uL RBC (3.30-5.50) M/uL Hgb (12.0-15.0) g/dL Hct (36.0-48.0) % MCV (80-98) fL MCH (27-31) pg MCHC (32-36) % Plt Count (150-400) K/uL Neut % (Auto) (36-66) % Lymph % (Auto) (24-44) % Mcduffie % (Auto) (2-6) % Eos % (Auto) (2-4) % Baso % (Auto) (0-1) % PT 11.7 (9.5-12.0) sec INR 1.07 (0.80-1.20) APTT (27.0-36.0) sec Sodium (140-148) mmol/L Potassium (3.6-5.2) mmol/L Chloride (100-108) mmol/L Carbon Dioxide (21-32) mmol/L Anion Gap (5.0-14.0) mmol/L BUN (7-18) mg/dL Creatinine (0.6-1.0) mg/dL Est Cr Clr Drug Dosing mL/min Estimated GFR (MDRD) (>60) Glucose (74-106) mg/dL POC Glucose 157 H (74-106) MG/DL Lactic Acid (0.4-2.0) mmol/L Calcium (8.5-10.1) mg/dL Total Bilirubin (0.2-1.0) mg/dL Direct Bilirubin (0.0-0.2) mg/dL Indirect Bilirubin AST (15-37) U/L ALT (12-78) U/L Alkaline Phosphatase (46-116) U/L Ammonia (11-32) mmol/L Lactate Dehydrogenase (82-234) U/L C-Reactive Protein (0.0-0.3) mg/dL Total Protein (6.4-8.2) g/dL Albumin (3.4-5.0) g/dL Globulin (2.3-3.5) g/dL Albumin/Globulin Ratio (1.2-2.2) Procalcitonin ng/mL Urine Color Yellow (YELLOW) Urine Appearance Clear (CLEAR) Urine pH 8.5 H (5.0-8.0) Ur Specific [place] 1.020 (1.008-1.030) Urine Protein Negative (NEGATIVE) mg/dL Urine Glucose (UA) Negative (NEGATIVE) mg/dL Urine Ketones Negative (NEGATIVE) mg/dL Urine Occult Blood Negative (NEGATIVE) Urine Nitrite Negative (NEGATIVE) Urine Bilirubin Negative (NEGATIVE) Urine Urobilinogen 0.2 (0.2-1.0) EU/dL Ur Leukocyte Esterase Negative (NEGATIVE) Urine RBC 0-5 (0-5) Urine WBC 0-5 (0-5) Ur Epithelial Cells Few Amorphous Sediment Few Urine Bacteria Not seen Urine Mucus Not seen SARS-CoV-2 RNA (TAYLOR) (NEGATIVE) 12/18/19 12/18/19 12/18/19 Range/Units 04:15 04:15 04:15 WBC 6.0 (4.5-11.0) K/uL RBC 3.83 (3.30-5.50) M/uL Hgb 10.3 L (12.0-15.0) g/dL Hct 34.0 L (36.0-48.0) % MCV 89 (80-98) fL MCH 27 (27-31) pg MCHC 30 L (32-36) % Plt Count 214 (150-400) K/uL Neut % (Auto) (36-66) % Lymph % (Auto) (24-44) % Mcduffie % (Auto) (2-6) % Eos % (Auto) (2-4) % Baso % (Auto) (0-1) % PT (9.5-12.0) sec INR (0.80-1.20) APTT (27.0-36.0) sec Sodium 137 L (140-148) mmol/L Potassium 4.5 (3.6-5.2) mmol/L Chloride 101 (100-108) mmol/L Carbon Dioxide 27 (21-32) mmol/L Anion Gap 13.5 (5.0-14.0) mmol/L BUN 22 H (7-18) mg/dL Creatinine 1.4 H (0.6-1.0) mg/dL Est Cr Clr Drug Dosing 29.99 mL/min Estimated GFR (MDRD) 37 L (>60) Glucose 213 H (74-106) mg/dL POC Glucose (74-106) MG/DL Lactic Acid (0.4-2.0) mmol/L Calcium 8.7 (8.5-10.1) mg/dL Total Bilirubin 0.4 (0.2-1.0) mg/dL Direct Bilirubin (0.0-0.2) mg/dL Indirect Bilirubin AST 102 H (15-37) U/L ALT 27 (12-78) U/L Alkaline Phosphatase 108 (46-116) U/L Ammonia 21 (11-32) mmol/L Lactate Dehydrogenase (82-234) U/L C-Reactive Protein (0.0-0.3) mg/dL Total Protein 6.7 (6.4-8.2) g/dL Albumin 2.3 L (3.4-5.0) g/dL Globulin 4.4 H (2.3-3.5) g/dL Albumin/Globulin Ratio 0.5 L (1.2-2.2) Procalcitonin ng/mL Urine Color (YELLOW) Urine Appearance (CLEAR) Urine pH (5.0-8.0) Ur Specific [place] (1.008-1.030) Urine Protein (NEGATIVE) mg/dL Urine Glucose (UA) (NEGATIVE) mg/dL Urine Ketones (NEGATIVE) mg/dL Urine Occult Blood (NEGATIVE) Urine Nitrite (NEGATIVE) Urine Bilirubin (NEGATIVE) Urine Urobilinogen (0.2-1.0) EU/dL Ur Leukocyte Esterase (NEGATIVE) Urine RBC (0-5) Urine WBC (0-5) Ur Epithelial Cells Amorphous Sediment Urine Bacteria Urine Mucus SARS-CoV-2 RNA (TAYLOR) (NEGATIVE) 12/18/19 Range/Units 07:30 WBC (4.5-11.0) K/uL RBC (3.30-5.50) M/uL Hgb (12.0-15.0) g/dL Hct (36.0-48.0) % MCV (80-98) fL MCH (27-31) pg MCHC (32-36) % Plt Count (150-400) K/uL Neut % (Auto) (36-66) % Lymph % (Auto) (24-44) % [place]duffie % (Auto) (2-6) % Eos % (Auto) (2-4) % Baso % (Auto) (0-1) % PT (9.5-12.0) sec INR (0.80-1.20) APTT (27.0-36.0) sec Sodium (140-148) mmol/L Potassium (3.6-5.2) mmol/L Chloride (100-108) mmol/L Carbon Dioxide (21-32) mmol/L Anion Gap (5.0-14.0) mmol/L BUN (7-18) mg/dL Creatinine (0.6-1.0) mg/dL Est Cr Clr Drug Dosing mL/min Estimated GFR (MDRD) (>60) Glucose (74-106) mg/dL POC Glucose 181 H (74-106) MG/DL Lactic Acid (0.4-2.0) mmol/L Calcium (8.5-10.1) mg/dL Total Bilirubin (0.2-1.0) mg/dL Direct Bilirubin (0.0-0.2) mg/dL Indirect Bilirubin AST (15-37) U/L ALT (12-78) U/L Alkaline Phosphatase (46-116) U/L Ammonia (11-32) mmol/L Lactate Dehydrogenase (82-234) U/L C-Reactive Protein (0.0-0.3) mg/dL Total Protein (6.4-8.2) g/dL Albumin (3.4-5.0) g/dL Globulin (2.3-3.5) g/dL Albumin/Globulin Ratio (1.2-2.2) Procalcitonin ng/mL Urine Color (YELLOW) Urine Appearance (CLEAR) Urine pH (5.0-8.0) Ur Specific [place] (1.008-1.030) Urine Protein (NEGATIVE) mg/dL Urine Glucose (UA) (NEGATIVE) mg/dL Urine Ketones (NEGATIVE) mg/dL Urine Occult Blood (NEGATIVE) Urine Nitrite (NEGATIVE) Urine Bilirubin (NEGATIVE) Urine Urobilinogen (0.2-1.0) EU/dL Ur Leukocyte Esterase (NEGATIVE) Urine RBC (0-5) Urine WBC (0-5) Ur Epithelial Cells Amorphous Sediment Urine Bacteria Urine Mucus SARS-CoV-2 RNA (TAYLOR) (NEGATIVE) Favio Results Last 24 Hours: Microbiology 12/17/19 13:49 Influenza Type A Antigen Screen - Final Nasal Aspirate, Unspecified NEGATIVE INFLUENZA A VIRUS AG REFERENCE RANGE: NEGATIVE Influenza Type B Antigen Screen - Final NEGATIVE INFLUENZA B VIRUS AG REFERENCE RANGE: NEGATIVE Med Orders - Current: Current Medications Acetaminophen (Tylenol) 650 mg PO Q4H PRN PRN Reason: Pain (Mild 1-3)/fever Aspirin (Halfprin) 81 mg PO DAILY [facility] Last Admin: 12/18/19 08:07 Dose: 81 mg Documented by: Piperacillin/Tazobactam/ (Dextrose 4.5 gm/ Premix) 100 mls @ 100 mls/hr IV Q8H [facility] Insulin Human Lispro (Humalog) 0 unit SUBCUT QIDACANDBED [facility]; Protocol Last Admin: 12/18/19 08:07 Dose: 2 units Documented by: Ketorolac Tromethamine (Toradol) 15 mg IVPUSH Q6H PRN PRN Reason: Pain (moderate 4-6) Stop: 12/22/19 18:15 Lorazepam (Ativan) 0.5 mg IVPUSH Q4H PRN PRN Reason: Nausea/Vomiting Lorazepam (Ativan) 0.5 mg PO Q4H PRN PRN Reason: Nausea/Anxiety Magnesium Hydroxide (Milk Of Magnesia) 30 ml PO Q12H PRN PRN Reason: Constipation Mirtazapine (Remeron) 30 mg PO BEDTIME [facility] Last Admin: 12/17/19 21:24 Dose: 30 mg Documented by: Morphine Sulfate (Morphine) 2 mg IVPUSH Q2H PRN PRN Reason: Pain (severe 7-10) Last Admin: 12/18/19 10:05 Dose: 2 mg Documented by: Ondansetron HCl (Zofran) 4 mg IV Q6H PRN PRN Reason: Nausea/Vomiting Ondansetron HCl (Zofran Odt) 4 mg PO Q6H PRN PRN Reason: Nausea able to take PO Pramipexole Dihydrochloride (Mirapex) 0.5 mg PO BEDTIME [facility] Last Admin: 12/17/19 21:24 Dose: 0.5 mg Documented by: Prednisone (Prednisone) 40 mg PO WITHBREAKFAST [facility] Last Admin: 12/18/19 08:07 Dose: 40 mg Documented by: Senna/Docusate Sodium (Senna Plus) 1 tab PO BID PRN PRN Reason: Constipation Sodium Chloride (Saline Flush) 10 ml FLUSH ASDIRECTED PRN PRN Reason: Keep Vein Open Last Admin: 12/17/19 15:26 Dose: 10 ml Documented by: Discontinued Medications Acetaminophen (Tylenol) 650 mg PO Q4H PRN PRN Reason: Fever Greater Than 101 Last Admin: 12/17/19 14:37 Dose: 650 mg Documented by: Diphenhydramine HCl (Benadryl) 25 mg IVPUSH ONETIME ONE Stop: 12/17/19 14:21 Last Admin: 12/17/19 18:58 Dose: Not Given Documented by: Diphenhydramine HCl (Benadryl) 50 mg IVPUSH ONETIME ONE Stop: 12/17/19 14:29 Last Admin: 12/17/19 14:38 Dose: Not Given Documented by: Hydromorphone HCl (Dilaudid) 1 mg IVPUSH ONETIME ONE Stop: 12/17/19 13:41 Last Admin: 12/17/19 14:24 Dose: 1 mg Documented by: Lactated Ringer's (Ringers, Lactated) 1,000 mls @ 999 mls/hr IV ASDIRECTED [facility] Last Admin: 12/17/19 14:23 Dose: 999 mls/hr Documented by: Piperacillin Sod/Tazobactam (Sod 4.5 gm/ Sodium Chloride) 100 mls @ 100 mls/hr IV Q6H [facility] Last Admin: 12/18/19 01:46 Dose: 100 mls/hr Documented by: Sodium Chloride (Normal Saline) 80 mls @ 3 mls/sec IV ASDIRECTED CARMELA Stop: 12/17/19 15:01 Last Admin: 12/17/19 15:26 Dose: 3 mls/sec Documented by: Sodium Chloride (Normal Saline) 1,000 mls @ 500 mls/hr IV ASDIRECTED CARMELA Stop: 12/17/19 19:46 Last Admin: 12/17/19 17:49 Dose: 500 mls/hr Documented by: Sodium Chloride (Normal Saline) 1,000 mls @ 125 mls/hr IV ASDIRECTED [facility] Last Admin: 12/18/19 01:44 Dose: 125 mls/hr Documented by: Piperacillin/Tazobactam/ (Dextrose 4.5 gm/ Premix) 100 mls @ 100 mls/hr IV Q6H [facility] Stop: 12/18/19 08:30 Last Admin: 12/18/19 08:00 Dose: 100 mls/hr Documented by: Iopamidol (Isovue-300 (61%)) 100 ml IV ONETIME ONE Stop: 12/17/19 15:00 Last Admin: 12/17/19 15:26 Dose: 100 ml Documented by: Methylprednisolone Sodium Succinate (Solu-Medrol) 125 mg IVPUSH ONETIME ONE Stop: 12/17/19 17:44 Last Admin: 12/17/19 17:50 Dose: 125 mg Documented by: Morphine Sulfate (Morphine) 15 mg PO Q4H PRN PRN Reason: Pain (moderate 4-6) Ondansetron HCl (Zofran) 4 mg IVPUSH ONETIME ONE Stop: 12/17/19 13:41 Last Admin: 12/17/19 14:23 Dose: 4 mg Documented by: Sodium Chloride (Saline Flush) 10 ml FLUSH ONETIME ONE Stop: 12/17/19 15:00 Last Admin: 12/17/19 18:58 Dose: Not Given Documented by: - Exam Quality Assessment: Supplemental Oxygen General: Alert, Oriented, Cooperative, No Acute Distress Lungs: Clear to Auscultation, Normal Respiratory Effort, Decreased Breath Sounds (Mild both bases) Cardiovascular: Regular Rate, Regular Rhythm GI/Abdominal Exam: Normal Bowel Sounds, Soft, No Distention, Tender Extremities: No Pedal Edema. No: Increased Warmth Skin: Warm, Dry Psy/Mental Status: Alert, Normal Affect Sepsis Event Note - Evaluation Sepsis Screening Result: No Definite Risk - Focused Exam Vital Signs: Vital Signs Temp Pulse Resp BP Pulse Ox 12/18/19 10:44 36.4 C 77 16 149/71 H 95 12/18/19 07:39 35.9 C L 74 16 155/66 H 96 12/18/19 07:16 94 L 12/18/19 05:00 60 16 95 12/18/19 01:33 92 L 12/18/19 01:26 35.8 C L 77 16 147/77 H 97 - Problem List & Annotations (1) Right upper quadrant abdominal pain SNOMED Code(s): 290119011 Code(s): R10.11 - RIGHT UPPER QUADRANT PAIN Status: Acute Current Visit: Yes (2) Hepatocellular carcinoma Status: Acute Current Visit: Yes (3) CKD (chronic kidney disease), stage III SNOMED Code(s): 071257894 Code(s): N18.30 - CHRONIC KIDNEY DISEASE, STAGE 3 UNSPECIFIED Status: Chronic Current Visit: No Qualifiers: Chronic kidney disease stage 3 subtype: stage 3a (GFR 45-59) Qualified Code(s): N18.31 - Chronic kidney disease, stage 3a (4) Type 2 diabetes mellitus SNOMED Code(s): 50750672 Code(s): E11.9 - TYPE 2 DIABETES MELLITUS WITHOUT COMPLICATIONS Status: Chronic Current Visit: No Qualifiers: Diabetes mellitus termite exterminator 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 insulin use: with long-term use Diabetes mellitus complication status: with other specified complication Qualified Code(s): E11.69 - Type 2 diabetes mellitus with other specified complication; Z79.4 - termite exterminator helper (current) use of insulin - Problem List Review Problem List Initiated/Reviewed/Updated: Yes - My Orders Last 24 Hours: My Active Orders 12/17/19 Dinner Consistent Carbohydrate Diet [DIET] 12/17/19 17:49 Resuscitation Status Routine 12/17/19 18:14 Acetaminophen [TylenoL] 650 mg PO Q4H PRN Docusate Sodium/Sennosides [Senna Plus] 1 tab PO BID PRN Ketorolac [Toradol] 15 mg IVPUSH Q6H PRN LORazepam [Ativan] 0.5 mg IVPUSH Q4H PRN LORazepam [Ativan] 0.5 mg PO Q4H PRN Magnesium Hydroxide [Milk of Magnesia] 30 ml PO Q12H PRN Morphine 2 mg IVPUSH Q2H PRN Ondansetron [Zofran ODT] 4 mg PO Q6H PRN Ondansetron [Zofran] 4 mg IV Q6H PRN Sodium Chloride 0.9% [Normal Saline] 1,000 ml IV ASDIRECTED 12/17/19 18:14 Patient Status [ADT] Routine Antiembolic Devices [RC] .Routine Communication Order [RC] PRN Communication Order [RC] PRN Diabetes Education [RC] Click to Edit Intake and Output [RC] QSHIFT Notify Provider Vital Signs [RC] ASDIRECTED Notify Provider [RC] PRN Oxygen Therapy [RC] PRN Pulse Oximetry [RC] CONTINUOUS Up With Assistance [RC] ASDIRECTED Vital Signs [RC] Q4H Sequential Compression Device [OM.PC] Routine 12/17/19 20:00 Insulin Lispro [HumaLOG] See Protocol SUBCUT QIDACANDBED 12/17/19 21:00 Mirtazapine [Remeron] 30 mg PO BEDTIME Pramipexole [Mirapex] 0.5 mg PO BEDTIME 12/18/19 08:00 predniSONE 40 mg PO WITHBREAKFAST 12/18/19 09:00 Aspirin [Halfprin] 81 mg PO DAILY 12/18/19 10:54 Convert IV to Saline Lock [OM.PC] Routine 12/18/19 10:55 Morphine 15 - 30 mg PO Q4H PRN 12/18/19 11:30 GLUCOSE POC LAB TO COLLECT JPM [POC] QIDACANDBED 12/18/19 16:30 GLUCOSE POC LAB TO COLLECT JPM [POC] QIDACANDBED 12/18/19 21:00 GLUCOSE POC LAB TO COLLECT JPM [POC] QIDACANDBED Insulin Glargine,Hum.Rec.Anlog [Raquelagljonathan Zamora U-100] 15 unit SQ BEDTIME 12/19/19 07:30 GLUCOSE POC LAB TO COLLECT JPM [POC] QIDACANDBED 12/19/19 11:30 GLUCOSE POC LAB TO COLLECT JPM [POC] QIDACANDBED 12/19/19 16:30 GLUCOSE POC LAB TO COLLECT JPM [POC] QIDACANDBED 12/19/19 21:00 GLUCOSE POC LAB TO COLLECT JPM [POC] QIDACANDBED 12/20/19 07:30 GLUCOSE POC LAB TO COLLECT JPM [POC] QIDACANDBED 12/20/19 11:30 GLUCOSE POC LAB TO COLLECT JPM [POC] QIDACANDBED 12/20/19 16:30 GLUCOSE POC LAB TO COLLECT JPM [POC] QIDACANDBED 12/20/19 21:00 GLUCOSE POC LAB TO COLLECT JPM [POC] QIDACANDBED 12/21/19 07:30 GLUCOSE POC LAB TO COLLECT JPM [POC] QIDACANDBED 12/21/19 11:30 GLUCOSE POC LAB TO COLLECT JPM [POC] QIDACANDBED 12/21/19 16:30 GLUCOSE POC LAB TO COLLECT JPM [POC] QIDACANDBED 12/21/19 21:00 GLUCOSE POC LAB TO COLLECT JPM [POC] QIDACANDBED 12/22/19 07:30 GLUCOSE POC LAB TO COLLECT JPM [POC] QIDACANDBED 12/22/19 11:30 GLUCOSE POC LAB TO COLLECT JPM [POC] QIDACANDBED 12/22/19 16:30 GLUCOSE POC LAB TO COLLECT JPM [POC] QIDACANDBED 12/22/19 21:00 GLUCOSE POC LAB TO COLLECT JPM [POC] QIDACANDBED 12/23/19 07:30 GLUCOSE POC LAB TO COLLECT JPM [POC] QIDACANDBED - Plan Plan:: ASSESSMENT AND PLAN - Hepatocellular [id number] diagnosis, diffuse lesions throughout the liver. Pain is stable so far. More clear this morning. Ammonia level was normal. -Pain control with morphine (titrating dose today)and Toradol -Plan to add long-acting dose of morphine tonight -start prednisone this morning -Outpatient oncology follow-up tomorrow Insulin-dependent diabetes mellitus-Blood sugar levels have been acceptable so far and intake is better today. -Restart long-acting insulin for tonight -Medium dose sliding scale insulin -Restart metformin Stage III chronic kidney disease-creatinine slightly worse than baseline and stable since admission. Maintenance issues - - DVT prophylaxis -mechanical - GI prophylaxis -not indicated - Nutrition -consistent carbohydrates Disposition - I would anticipate discharge home in 1 to 2 days Primary care physician -Dr. Leatha Paz M.D.
[2019-12-18] MEDS: Morphine 15 MG Tab PO PRN ×3 (11:37→20:29)
[2019-12-18] MEDS: Piperacillin/Tazobactam/Dext 4.5 GM in Premix Bag 1 BAG IV SCH (15:44)
[2019-12-18] MEDS: METFORMIN 500 MG PO SCH (17:09)
[2019-12-18] MEDS ORDERED: BASAGLAR INSULIN SUBCUT SCH ×2 (21:00)
[2019-12-18] MEDS ORDERED: Insulin Glargine,Human Rec. Analog 100 Units/ML 3 ML Pen SUBCUT SCH (21:00)
[2019-12-18] MEDS ORDERED: PRAMIPEXOLE 0.25 MG PO SCH (21:00)
[2019-12-18] MEDS ORDERED: MIRTAZAPINE 30 MG PO SCH (21:00)
[2019-12-18 22:11] LABS: HBSAG SCREEN Negative (Negative); HEP A AB, IGM Negative (Negative); HEP B CORE AB, IGM Negative (Negative); HEP C VIRUS AB >11.0 s/co ratio (0.0-0.9)
[2019-12-19] MEDS: Piperacillin/Tazobactam/Dext 4.5 GM in Premix Bag 1 BAG IV SCH ×2 (00:36→07:47)
[2019-12-19] MEDS: Morphine 30 MG Tab.ER PO PRN ×2 (00:47→11:33)
[2019-12-19] MEDS: Insulin Lispro 100 Unit/ML 3 ML KwikPen SUBCUT SCH (07:50)
[2019-12-19] MEDS: predniSONE 20 MG Tab PO SCH (07:51)
[2019-12-19] MEDS: METFORMIN 500 MG PO SCH (07:52)
[2019-12-19] MEDS: Sodium Chloride 0.9% 10 ML Syringe FLUSH PRN (07:56)
[2019-12-19 08:18] VITALS: BP 154/77; PULSE 97
[2019-12-19] MEDS: Morphine 15 MG Tab PO PRN (08:24)
--- NOTE | 2019-12-19 10:43 | PCM.DCSUM1 ---
Discharge Summary - Hospital Course Brief History: 69-year-old female with history of type 2 diabetes mellitus and recently diagnosed hepatocellular carcinoma who presented with severe right- sided abdominal pain as well as weakness and confusion. She was admitted for management of pain control and hydration. Diagnosis: Stroke: No - Discharge Data Discharge Date: 12/19/19 Discharge Disposition: Home, Self-Care 01 Condition: Fair - Referral to Home Health Primary Care Physician: PCP None - Discharge Diagnosis/Problem(s) (1) Hepatocellular carcinoma Status: Acute (2) Right upper quadrant abdominal pain SNOMED Code(s): 669801291 ICD Code: R10.11 - RIGHT UPPER QUADRANT PAIN Status: Acute (3) CKD (chronic kidney disease), stage III SNOMED Code(s): 162696724 ICD Code: N18.30 - CHRONIC KIDNEY DISEASE, STAGE 3 UNSPECIFIED Status: Chronic Qualifiers: Chronic kidney disease stage 3 subtype: stage 3a (GFR 45-59) Qualified Code(s): N18.31 - Chronic kidney disease, stage 3a (4) Type 2 diabetes mellitus SNOMED Code(s): 08445623 ICD Code: E11.9 - TYPE 2 DIABETES MELLITUS WITHOUT COMPLICATIONS Status: Chronic Qualifiers: Diabetes mellitus exterminator helper termite insulin use: with exterminator helper termite use Diabetes mellitus complication status: with other specified complication Qualified Code(s): E11.69 - Type 2 diabetes mellitus with other specified complication; Z79.4 - supervisor intermediates (current) use of insulin - Patient Summary/Data Hospital Course: Lissa presented to the emergency room with severe right-sided abdominal pain as well as weakness, confusion and lethargy. Work-up in the emergency room revealed stable but extensive cancer invasion throughout the liver. There was evidence for dehydration and the patient was quite somnolent. There is no strong evidence to support infection. The patient was admitted to the hospital for pain control with her underlying hepatocellular carcinoma. At the time of admission I suspected that her confusion and lethargy was related to her narcotics as she had recently had increases in both the Dilaudid and the fentanyl. She was not getting good pain relief from these medications so we elected to change to morphine. She was agreeable to trying some steroids as well. We started her on Solu-Medrol initially and then transition to prednisone the next morning. Her breakthrough pain was initially managed with morphine. The morphine did help so we added a long-acting morphine twice daily in addition to this. We have seen a good response with the hydration and change in her pain medications. She is much more alert and interactive. We have achieved better pain control throughout the course of the hospital stay. Pain control is still not quite optimal so at the time of discharge her plan is to increase her to 45 mg twice daily of the long-acting morphine. She will have breakthrough morphine available as well. Her appetite has been better and she has not had significant nausea. Laboratory studies have been fairly unremarkable. We did review the cancer situation with her. Unfortunately this appears to be a very aggressive and advanced hepatocellular carcinoma. I did share with her the conversation that I had with the oncology folks who felt that this was going to be a very difficult cancer to treat and that options would include either some palliative chemotherapy or potentially palliative care with hospice. The patient and her family are going to be thinking about these options and would like to have an opinion from the oncology folks before they make any final decisions. Her pain is under good control and she is interested in going home at this time. She will be going from the hospital to her oncology appointment this afternoon. I did update her primary care physician as well. Patient and her daughter are in agreement with the plan. - Patient Instructions Diet: Regular Diet as Tolerated Activity: As Tolerated Driving: Do Not Drive (if taking pain meds) Showering/Bathing: May Shower Notify Provider of: Fever, Increased Pain Other/Special Instructions: 1. You were in the hospital for pain management after you presented with significant right sided abdominal pain as well as weakness and confusion. Your condition has been improving with hydration as well as a change in your pain management regimen. I recommend that we continue to use the prednisone with a taper over the next 7 days. Please take 40 mg once daily in the morning on and on Tuesday. Starting Tuesday take 20 mg o nce daily for 5 days. To help control the majority of your pain I recommend that we use MS Contin (long-acting morphine) 45 mg twice daily taken in the morning and in the evening spaced about 12 hours apart. You may use short acting morphine every 4 hours as needed for breakthrough pain during the day. You can use 15 mg for mild to moderate pain and 30 mg for severe breakthrough pain. 2. Stop taking the Dilaudid and fentanyl patch. I believe that these medications caused your weakness and confusion and were not effective to help with your pain. 3. Continue your other home medications as previously prescribed. 4. Follow up as scheduled with oncology this afternoon and your primary care as scheduled on Tuesday. - Discharge Plan *PRESCRIPTION DRUG MONITORING PROGRAM REVIEWED*: Not Applicable *COPY OF PRESCRIPTION DRUG MONITORING REPORT IN PATIENT MACARENA: Not Applicable Prescriptions/Med Rec: LORazepam [Ativan] 0.5 mg PO Q6H PRN #15 tab PRN Reason: Anxiety Morphine 15 - 30 mg PO Q4H PRN #40 tablet PRN Reason: Pain Morphine [MS Contin] 15 mg PO BID #14 tab.er Morphine [MS Contin] 30 mg PO BID #14 tab.er predniSONE 20 mg PO ASDIRECTED #9 tablet Home Medications: Home Meds Albuterol [Ventolin HFA] 2 puff INH Q4H PRN 07/02/13 [History] Aspirin [Adult Low Dose Aspirin EC] 81 mg PO DAILY 07/02/13 [History] Pramipexole Di-HCl [Mirapex] 0.5 mg PO BEDTIME 07/02/13 [History] Docusate Sodium 500 mg PO DAILY PRN 03/07/15 [History] Polyethylene Glycol 3350 [MiraLAX] 34 g PO TID 03/07/15 [History] Calcium Carbonate [Calcium] 600 mg PO BID 05/25/18 [History] Insulin Glargine,Hum.Rec.Anlog [Basaglar Kwikpen U-100] 15 unit SQ BEDTIME 05/25/18 [History] Mirtazapine [Remeron] 30 mg PO BEDTIME 05/25/18 [History] Cholecalciferol (Vitamin D3) [Vitamin D3] 2,000 unit PO DAILY 11/29/19 [History] Lactulose [Generlac] 10 gm PO DAILY PRN 11/29/19 [History] Sennosides [Ex-Lax Maximum Strength] 25 mg PO DAILY PRN 11/29/19 [History] Vitamin B Complex/Folic Acid [Vitamin B-100 Complex] 1 tab PO DAILY 11/29/19 [History] Magnesium Oxide [Magnesium] 1,500 mg PO BEDTIME 12/07/19 [History] metFORMIN [Glucophage] 1,000 mg PO BIDMEALS 12/18/19 [History] LORazepam [Ativan] 0.5 mg PO Q6H PRN #15 tab 12/19/19 [Rx] Morphine 15 - 30 mg PO Q4H PRN #40 tablet 12/19/19 [Rx] Morphine [MS Contin] 15 mg PO BID #14 tab.er 12/19/19 [Rx] Morphine [MS Contin] 30 mg PO BID #14 tab.er 12/19/19 [Rx] predniSONE 20 mg PO ASDIRECTED #9 tablet 12/19/19 [Rx] Oxygen Therapy Mode: Room Air Patient Handouts: Morphine sustained-release tablets, Opioid Pain Medicine Management, Liver Cancer Referrals: Bobby Hensley MD [Physician] - 12/21/19 11:00 am (Your appointment with Dr. Hensley is a Virtual Appointment. Sign into your My Health Account 15 minutes before your virtual appointment.) - Discharge Summary/Plan Comment DC Time >30 min.: Yes (50-extensive medication counseling and hospice discussion) - Patient Data Vitals - Most Recent: Last Vital Signs Temp 36.4 C 12/19/19 07:00 Pulse 97 12/19/19 07:00 Resp 15 12/19/19 07:00 BP 154/77 H 12/19/19 07:00 Pulse Ox 95 12/19/19 08:00 Weight - Most Recent: 63.049 kg I&O - Last 24 hours: Intake & Output 12/18/19 12/19/19 12/19/19 22:59 06:59 14:59 Intake Total 580 100 633 Balance 580 100 633 Lab Results - Last 24 hrs: Laboratory Results - last 24 hr 12/17/19 12/18/19 12/18/19 Range/Units 14:05 11:30 16:30 POC Glucose 171 H 238 H (74-106) MG/DL Hepatitis A IgM Ab Negative (Negative) Hep Bs Antigen Negative (Negative) Hep B Core IgM Ab Negative (Negative) Hepatitis C Antibody >11.0 H (0.0-0.9) s/co ratio 12/18/19 12/19/19 Range/Units 21:00 07:30 POC Glucose 226 H 96 (74-106) MG/DL Hepatitis A IgM Ab (Negative) Hep Bs Antigen (Negative) Hep B Core IgM Ab (Negative) Hepatitis C Antibody (0.0-0.9) s/co ratio [facility]ACY Results - Last 24 hrs: Microbiology 12/17/19 14:12 Aerobic Blood Culture - Preliminary Blood - Venous - Iv Start NO GROWTH AFTER 1 DAY Anaerobic Blood Culture - Preliminary NO GROWTH AFTER 1 DAY 12/17/19 14:05 Aerobic Blood Culture - Preliminary Blood - Venous - Iv Start NO GROWTH AFTER 1 DAY Anaerobic Blood Culture - Preliminary NO GROWTH AFTER 1 DAY Med Orders - Current: Current Medications Acetaminophen (Tylenol) 650 mg PO Q4H PRN PRN Reason: Pain (Mild 1-3)/fever Aspirin (Halfprin) 81 mg PO DAILY [facility] Last Admin: 12/18/19 08:07 Dose: 81 mg Documented by: Piperacillin/Tazobactam/ (Dextrose 4.5 gm/ Premix) 100 mls @ 100 mls/hr IV Q8H [facility] Last Admin: 12/19/19 07:47 Dose: 100 mls/hr Documented by: Insulin Human Lispro (Humalog) 0 unit SUBCUT QIDACANDBED [facility]; Protocol Last Admin: 12/19/19 07:50 Dose: Not Given Documented by: Ketorolac Tromethamine (Toradol) 15 mg IVPUSH Q6H PRN PRN Reason: Pain (moderate 4-6) Stop: 12/22/19 18:15 Lorazepam (Ativan) 0.5 mg IVPUSH Q4H PRN PRN Reason: Nausea/Vomiting Lorazepam (Ativan) 0.5 mg PO Q4H PRN PRN Reason: Nausea/Anxiety Magnesium Hydroxide (Milk Of Magnesia) 30 ml PO Q12H PRN PRN Reason: Constipation [facility] Admin: 12/19/19 07:52 Dose: 1,000 mg Documented by: Morphine Sulfate (Morphine) 2 mg IVPUSH Q2H PRN PRN Reason: Pain (severe 7-10) Last Admin: 12/18/19 14:31 Dose: 2 mg Documented by: Morphine Sulfate (Morphine) 15 - 30 mg PO Q4H PRN PRN Reason: Pain Last Admin: 12/19/19 08:24 Dose: 30 mg Documented by: Morphine Sulfate (Ms Contin) 30 mg PO BID PRN PRN Reason: Pain Last Admin: 12/19/19 00:47 Dose: 30 mg Documented by: Ondansetron HCl (Zofran) 4 mg IV Q6H PRN PRN Reason: Nausea/Vomiting Ondansetron HCl (Zofran Odt) 4 mg PO Q6H PRN PRN Reason: Nausea able to take PO Mirtazapine 30mg (Ptom) 0 each PO BEDTIME [facility] Last Admin: 12/18/19 21:37 Dose: 1 each Documented by: Basaglar Insulin (Ptom) 0 each SUBCUT BEDTIME [facility] Last Admin: 12/18/19 21:35 Dose: 1 each Documented by: Pramipexole Dihydrochloride (Mirapex) 0.5 mg PO BEDTIME [facility] Last Admin: 12/18/19 21:37 Dose: 0.5 mg Documented by: Prednisone (Prednisone) 40 mg PO WITHBREAKFAST [facility] Last Admin: 12/19/19 07:51 Dose: 40 mg Documented by: Senna/Docusate Sodium (Senna Plus) 1 tab PO BID PRN PRN Reason: Constipation Last Admin: 12/18/19 15:44 Dose: 1 tab Documented by: Sodium Chloride (Saline Flush) 10 ml FLUSH ASDIRECTED PRN PRN Reason: Keep Vein Open Last Admin: 12/19/19 07:56 Dose: 10 ml Documented by: Discontinued Medications Acetaminophen (Tylenol) 650 mg PO Q4H PRN PRN Reason: Fever Greater Than 101 Last Admin: 12/17/19 14:37 Dose: 650 mg Documented by: Diphenhydramine HCl (Benadryl) 25 mg IVPUSH ONETIME ONE Stop: 12/17/19 14:21 Last Admin: 12/17/19 18:58 Dose: Not Given Documented by: Diphenhydramine HCl (Benadryl) 50 mg IVPUSH ONETIME ONE Stop: 12/17/19 14:29 Last Admin: 12/17/19 14:38 Dose: Not Given Documented by: Hydromorphone HCl (Dilaudid) 1 mg IVPUSH ONETIME ONE Stop: 12/17/19 13:41 Last Admin: 12/17/19 14:24 Dose: 1 mg Documented by: Lactated Ringer's (Ringers, Lactated) 1,000 mls @ 999 mls/hr IV ASDIRECTED [facility] Last Admin: 12/17/19 14:23 Dose: 999 mls/hr Documented by: Piperacillin Sod/Tazobactam (Sod 4.5 gm/ Sodium Chloride) 100 mls @ 100 mls/hr IV Q6H [facility] Last Admin: 12/18/19 01:46 Dose: 100 mls/hr Documented by: Sodium Chloride (Normal Saline) 80 mls @ 3 mls/sec IV ASDIRECTED [facility] Stop: 12/17/19 15:01 Last Admin: 12/17/19 15:26 Dose: 3 mls/sec Documented by: Sodium Chloride (Normal Saline) 1,000 mls @ 500 mls/hr IV ASDIRECTED [facility] Stop: 12/17/19 19:46 Last Admin: 12/17/19 17:49 Dose: 500 mls/hr Documented by: Sodium Chloride (Normal Saline) 1,000 mls @ 125 mls/hr IV ASDIRECTED [facility] Last Admin: 12/18/19 01:44 Dose: 125 mls/hr Documented by: Piperacillin/Tazobactam/ (Dextrose 4.5 gm/ Premix) 100 mls @ 100 mls/hr IV Q6H [facility] Stop: 12/18/19 08:30 Last Admin: 12/18/19 08:00 Dose: 100 mls/hr Documented by: Iopamidol (Isovue-300 (61%)) 100 ml IV ONETIME ONE Stop: 12/17/19 15:00 Last Admin: 12/17/19 15:26 Dose: 100 ml Documented by: Methylprednisolone Sodium Succinate (Solu-Medrol) 125 mg IVPUSH ONETIME ONE Stop: 12/17/19 17:44 Last Admin: 12/17/19 17:50 Dose: 125 mg Documented by: Mirtazapine (Remeron) 30 mg PO BEDTIME [facility] Last Admin: 12/17/19 21:24 Dose: 30 mg Documented by: Morphine Sulfate (Morphine) 15 mg PO Q4H PRN PRN Reason: Pain (moderate 4-6) Ondansetron HCl (Zofran) 4 mg IVPUSH ONETIME ONE Stop: 12/17/19 13:41 Last Admin: 12/17/19 14:23 Dose: 4 mg Documented by: Pramipexole Dihydrochloride (Mirapex) 0.5 mg PO BEDTIME [facility] Last Admin: 12/17/19 21:24 Dose: 0.5 mg Documented by: Senna/Docusate Sodium (Senna Plus) 1 tab PO BID PRN PRN Reason: Constipation Sodium Chloride (Saline Flush) 10 ml FLUSH ONETIME ONE Stop: 12/17/19 15:00 Last Admin: 12/17/19 18:58 Dose: Not Given Documented by:
== END 2019-12-19 12:50 | disposition home or self-care (01) ==
LOC: JP.ED 12:21 → JP.MS 17:44
PROVIDERS: ADMIT Internal Medicine; ATTEND Internal Medicine
DX: C22.0 Liver cell carcinoma (principal); E78.00 Pure hypercholesterolemia, unspecified; I12.9 Hypertensive chronic kidney disease with stage 1 through stage 4 chronic kidney disease, or unspecified chronic kidney disease; J44.9 Chronic obstructive pulmonary disease, unspecified; E11.22 Type 2 diabetes mellitus with diabetic chronic kidney disease; Z98.890 Other specified postprocedural states; N18.30 Chronic kidney disease, stage 3 unspecified; Z01.812 Encounter for preprocedural laboratory examination; Z20.828 Contact with and (suspected) exposure to other viral communicable diseases; Z88.8 Allergy status to other drugs, medicaments and biological substances; Z91.041 Radiographic dye allergy status; Z79.899 Other long term (current) drug therapy; Z79.82 Long term (current) use of aspirin; Z79.4 Long term (current) use of insulin
CPT/HCPCS: 36415; 71045; 74177; 80048; 80053; 80074; 80076; 81001; 82140; 82962; 83605; 83615; 84145; 85025; 85027; 85610; 85730; 86140; 87040; 87804; 94762; 96361; 96365; 96366; 96375; 96376; 99217; 99219; 99224; 99284; 99285; A9270; G0378; J1170; J1200; J1815; J2270; J2405; J2543; J2930; J7030; J7120; J7512; Q9967; U0002; 99222-AI; 99232; 99238

== ENCOUNTER 2019-12-26 15:19 | Emergency (ER) | payer MEDICARE, BC ==
[2019-12-26 18:52] VITALS: BP 121/92; PULSE 101
--- NOTE | 2019-12-26 19:08 | EDM.PDOC ---
ED HPI GENERAL MEDICAL PROBLEM - General Chief Complaint: Fever Stated Complaint: MEDICAL Time Seen by Provider: 12/26/19 17:02 Source of Information: Reports: Patient, Family, Old Records - History of Present Illness Onset: Gradual Quality: Reports: Ache, Sharp Severity: Severe (Right upper quadrant abdominal pain causing shortness of breath) Associated Symptoms: Reports: Confusion, Fever/Chills, Loss of Appetite, Shortness of Breath - Related Data Allergies Allergy/AdvReac Type Severity Reaction Status Date / Time Iodinated Contrast Media Allergy Itching Verified 12/18/19 08:05 metoclopramide [From Reglan] AdvReac Nausea Verified 12/17/19 12:49 Home Meds: Home Meds Albuterol [Ventolin HFA] 2 puff INH Q4H PRN 07/02/13 [History] Aspirin [Adult Low Dose Aspirin EC] 81 mg PO DAILY 07/02/13 [History] Pramipexole Di-HCl [Mirapex] 0.5 mg PO BEDTIME 07/02/13 [History] Docusate Sodium 500 mg PO DAILY PRN 03/07/15 [History] Polyethylene Glycol 3350 [MiraLAX] 34 g PO TID 03/07/15 [History] Calcium Carbonate [Calcium] 600 mg PO BID 05/25/18 [History] Insulin Glargine,Hum.Rec.Anlog [Basaglar Kwikpen U-100] 15 unit SQ BEDTIME 05/25/18 [History] Mirtazapine [Remeron] 30 mg PO BEDTIME 05/25/18 [History] Cholecalciferol (Vitamin D3) [Vitamin D3] 2,000 unit PO DAILY 11/29/19 [History] Lactulose [Generlac] 10 gm PO DAILY PRN 11/29/19 [History] Sennosides [Ex-Lax Maximum Strength] 25 mg PO DAILY PRN 11/29/19 [History] Vitamin B Complex/Folic Acid [Vitamin B-100 Complex] 1 tab PO DAILY 11/29/19 [History] Magnesium Oxide [Magnesium] 1,500 mg PO BEDTIME 12/07/19 [History] metFORMIN [Glucophage] 1,000 mg PO BIDMEALS 12/18/19 [History] LORazepam [Ativan] 0.5 mg PO Q6H PRN #15 tab 12/19/19 [Rx] Morphine 15 - 30 mg PO Q4H PRN #40 tablet 12/19/19 [Rx] Morphine [MS Contin] 15 mg PO BID #14 tab.er 12/19/19 [Rx] Morphine [MS Contin] 30 mg PO BID #14 tab.er 12/19/19 [Rx] predniSONE 20 mg PO ASDIRECTED #9 tablet 12/19/19 [Rx] Past Medical History HEENT History: Reports: Cataract Cardiovascular History: Reports: High Cholesterol, Hypertension Respiratory History: Reports: Asthma, COPD, Pneumonia, Recurrent Gastrointestinal History: Reports: Chronic Constipation, Gastritis, Hemorrhoids, Other (See Below) Other Gastrointestinal History: nausea and vomiting. 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: Musculoskeletal History: Reports: Arthritis Neurological History: Reports: Neuropathy, Diabetic Psychiatric History: Reports: Anxiety Endocrine/Metabolic History: Reports: Diabetes, Type II Oncologic (Cancer) History: Reports: Liver - Infectious Disease History Infectious Disease History: Reports: Chicken Pox - Past Surgical History HEENT Surgical History: Reports: Tonsillectomy GI Surgical History: Reports: Colonoscopy, EGD Musculoskeletal Surgical History: Reports: Arthroscopic Knee Social & Family History - Family History Family Medical History: Noncontributory - Tobacco Use Tobacco Use Status *Q: Never Tobacco User - Caffeine Use Caffeine Use: Reports: Coffee - Recreational Drug Use Recreational Drug Use: No ED ROS GENERAL - Review of Systems Review Of Systems: See Below Constitutional: Reports: Fever, Chills, Malaise, Decreased Appetite HEENT: Reports: No Symptoms Respiratory: Reports: Shortness of Breath Cardiovascular: Reports: No Symptoms Endocrine: Reports: No Symptoms GI/Abdominal: Reports: Abdominal Pain (Right upper quadrant pain radiating to the back.), Anorexia, Constipation, Decreased Appetite : Reports: No Symptoms Musculoskeletal: Reports: No Symptoms Skin: Reports: No Symptoms Neurological: Reports: Confusion Psychiatric: Reports: Anxiety Hematologic/Lymphatic: Reports: No Symptoms Immunologic: Reports: No Symptoms ED EXAM, GENERAL - Physical Exam Exam: See Below Exam Limited By: No Limitations General Appearance: Anxious, Moderate Distress Throat/Mouth: Other (Mucous membranes dry) Head: Atraumatic, Normocephalic Neck: Normal Inspection, Supple, Non-Tender Respiratory/Chest: No Respiratory Distress, Decreased Breath Sounds (Bibasilar diminished breath sounds), Accessory Muscle Use. No: Stridor, Retractions Cardiovascular: Normal Peripheral Pulses, Regular Rate, Rhythm, No Edema, No JVD, No Murmur Peripheral Pulses: 2+: Radial (L), Radial (R) GI/Abdominal: Distended, Tender (Exquisitely tender in the right upper quadrant, generally tender throughout the abdomen. Dullness to percussion throughout the abdomen. Fluid wave.), Abnormal Bowel Sounds (Diminished bowel sounds) Back Exam: Normal Inspection, Full Range of Motion Extremities: Normal Inspection, Normal Range of Motion, Non-Tender, No Pedal Edema Neurological: Alert, Oriented, CN II-XII Intact, Normal Cognition, No Motor/Sensory Deficits Psychiatric: Anxious, Tearful Lymphatic: No Adenopathy Course - Vital Signs Last Recorded V/S: Last Vital Signs Temp 37.9 C 12/26/19 16:05 Pulse 101 H 12/26/19 18:51 Resp 16 12/26/19 16:05 BP 121/92 H 12/26/19 18:51 Pulse Ox 91 L 12/26/19 16:05 - Orders/Labs/Meds Orders: Active Orders 24 hr Category Date Time Status Chest 1V Frontal [CR] Stat Exams 12/26/19 17:27 Taken Labs: Laboratory Tests 12/26/19 12/26/19 12/26/19 Range/Units 17:49 17:49 17:49 WBC 20.7 H (4.5-11.0) K/uL RBC 4.05 (3.30-5.50) M/uL Hgb 10.8 L (12.0-15.0) g/dL Hct 35.6 L (36.0-48.0) % MCV 88 (80-98) fL MCH 27 (27-31) pg MCHC 30 L (32-36) % Plt Count 303 (150-400) K/uL Neut % (Auto) 86 H (36-66) % Lymph % (Auto) 7 L (24-44) % [place] % (Auto) 7 H (2-6) % Eos % (Auto) 0 L (2-4) % Baso % (Auto) 0 (0-1) % Sodium 130 L (140-148) mmol/L Potassium 4.5 (3.6-5.2) mmol/L Chloride 94 L (100-108) mmol/L Carbon Dioxide 31 (21-32) mmol/L Anion Gap 9.5 (5.0-14.0) mmol/L BUN 44 H D (7-18) mg/dL Creatinine 2.2 H D (0.6-1.0) mg/dL Est Cr Clr Drug Dosing 19.09 mL/min Estimated GFR (MDRD) 22 L (>60) Glucose 132 H (74-106) mg/dL Calcium 9.3 (8.5-10.1) mg/dL Total Bilirubin 0.8 D (0.2-1.0) mg/dL AST 333 H D (15-37) U/L ALT 43 (12-78) U/L Alkaline Phosphatase 117 H (46-116) U/L Ammonia < 10 L (11-32) mmol/L C-Reactive Protein 21.90 H (0.0-0.3) mg/dL Total Protein 7.5 (6.4-8.2) g/dL Albumin 2.8 L (3.4-5.0) g/dL Globulin 4.7 H (2.3-3.5) g/dL Albumin/Globulin Ratio 0.6 L (1.2-2.2) - Re-Assessments/Exams Free Text/Narrative Re-Assessment/Exam: 12/26/2019 18:40 I reviewed the findings of my exam and the labs with the patient and her family. It appears that this hepatocellular carcinoma is now causing hepatorenal syndrome. I discussed the probable prognosis and what we can do to keep the patient comfortable. I did prescribe Roxanol 20 mg per 5 mL, 450 mL's dispensed for the patient. They would like to move forward with hospice. 12/26/19 19:00 I discussed the case with Nevin from hospice at [facility]. She will contact the patient's family in the morning to do an intake. Departure - Departure Time of Disposition: 19:11 Disposition: Home, Self-Care 01 Condition: Fair Clinical Impression: Hepatocellular carcinoma, Hepatorenal syndrome, Right upper quadrant abdominal pain - Discharge Information *PRESCRIPTION DRUG MONITORING PROGRAM REVIEWED*: Not Applicable *COPY OF PRESCRIPTION DRUG MONITORING REPORT IN PATIENT MACARENA: Not Applicable Instructions: Abdominal Pain, Adult Referrals: Bobby Hensley MD [Primary Care Provider] - Care Plan Goals: I discussed hospice with Nevin from [facility]. She will contact you at 8 AM tomorrow to arrange for a meeting and intake. In addition, you have Roxanol 20 mg per mL for pain control. Use as directed. I will also send a prescription to [facility] for Zofran 4 mg ODT. Sepsis Event Note (ED) - Evaluation Sepsis Screening Result: Possible Sepsis Risk - Focused Exam Vital Signs: Vital Signs Temp Pulse Resp BP Pulse Ox 12/26/19 18:51 101 H 121/92 H 12/26/19 16:05 37.9 C 98 16 123/56 L 91 L 12/26/19 15:52 37.9 C 98 16 123/56 L 91 L - Problem List & Annotations (1) Hepatocellular carcinoma Status: Chronic Priority: High Current Visit: Yes (2) Right upper quadrant abdominal pain SNOMED Code(s): 715380848 Code(s): R10.11 - RIGHT UPPER QUADRANT PAIN Status: Chronic Priority: Medium Current Visit: Yes (3) Hepatorenal syndrome SNOMED Code(s): 38852721 Code(s): K76.7 - HEPATORENAL SYNDROME Status: Acute Priority: High Current Visit: Yes - Problem List Review Problem List Initiated/Reviewed/Updated: Yes - My Orders Last 24 Hours: My Active Orders 12/26/19 17:27 Chest 1V Frontal [CR] Stat - Assessment/Plan Last 24 Hours: My Active Orders 12/26/19 17:27 Chest 1V Frontal [CR] Stat
--- NOTE | 2019-12-27 09:19 | CR ---
CHEST: Portable 12/26/2019 at 5:42 PM CLINICAL HISTORY:Dyspnea COMPARISON:12/17/2019 FINDINGS: There is less than optimal inspiration. There is some streaky density persisting at both lung bases slightly greater on the left. This is similar if not slightly diminished when compared to the 12/17/2019 study. There is some underlying pleural parenchymal scarring. Impression: Limited study with poor inspiration Slight improvement in bibasal airspace disease
== END 2019-12-26 20:41 | disposition home or self-care (01) ==
LOC: JP.ED 15:19
DX: C22.0 Liver cell carcinoma (principal); K76.7 Hepatorenal syndrome; J44.9 Chronic obstructive pulmonary disease, unspecified; I12.9 Hypertensive chronic kidney disease with stage 1 through stage 4 chronic kidney disease, or unspecified chronic kidney disease; N18.9 Chronic kidney disease, unspecified; M19.90 Unspecified osteoarthritis, unspecified site; E11.22 Type 2 diabetes mellitus with diabetic chronic kidney disease; E11.40 Type 2 diabetes mellitus with diabetic neuropathy, unspecified; F41.9 Anxiety disorder, unspecified; Z91.040 Latex allergy status; Z88.8 Allergy status to other drugs, medicaments and biological substances; Z79.82 Long term (current) use of aspirin; Z79.4 Long term (current) use of insulin; Z79.899 Other long term (current) drug therapy
CPT/HCPCS: 36415; 71045; 71045-26; 80053; 82140; 85025; 86140; 99285-25